=== PATIENT | female | born 1930 | race Caucasian/White ===

== ENCOUNTER → 2016-05-29 | Outpatient (CLI) | payer MEDICARE, OTHER ==
--- NOTE | 2016-05-29 09:18 | US ---
EXAMINATION TYPE: US abdomen complete DATE OF EXAM: 05/29/2016 8:23 AM COMPARISON: NONE CLINICAL HISTORY: ABD Pain R10.84. EXAM MEASUREMENTS: Liver Length: 14.7 cm Gallbladder Wall: Surgically absent cm CBD: 0.2 cm Spleen: 10.5 cm Right Kidney: 11.0 x 5.6 x 4.6 cm Left Kidney: 11.1 x 4. 4 x 4.7 cm TECHNOLOGIST IMPRESSION: morbidly obese patientl Pancreas: no masses seen, tail partially obscured by bowel gas, prominent for patients age Liver: heterogeneous and difficult to penetrate, increased attenuation Gallbladder: Surgically absent Evidence for sonographic Massey's sign: no CBD: wnl Spleen: possible cyst medial vs heterogeneous area, difficult to visualized due to body habitus Right Kidney: 3 cysts seen, largest 2 measuring 5.0 x 5.2 x 5.0cm and 2.6 x 2.6 x 2.6cm Left Kidney: 1.9 x 1.8 x 1.8cm Upper IVC: wnl Abd Aorta: portions visualized wnl, bifurcation not seen due to overlying bowel IMPRESSION: 1. Bilateral renal cysts. 2. Possible cyst spleen.
--- NOTE | 2016-05-29 10:05 | US ---
EXAMINATION TYPE: US pelvic complete DATE OF EXAM: 05/29/2016 9:19 AM COMPARISON: NONE CLINICAL HISTORY: ABD Pain R10.84, Pelvic Pain R10.2. TECHNIQUE: Transabdominal (TA) Date of LMP: post menapausal patient EXAM MEASUREMENTS: Uterus: 10.2 x 2.7 x 4.5 cm Endometrial Stripe: 0.5 cm Right Ovary: not visualized cm Left Ovary: not visualized cm TECHNOLOGIST IMPRESSION: morbidly obese patient 1. Uterus: Anteverted, heavily calcified 2. Endometrium: wnl 3. Right Ovary: not seen due to obesity and overlying bowel gas, atrophy 4. Left Ovary: not seen due to obesity and overlying bowel gas, atrophy 5. Bilateral Adnexa: wnl 6. Posterior cul-de-sac: wnl IMPRESSION: 1. Limited examination. 2. No ultrasound abnormalities are identified
== END | disposition home or self-care (01) ==
LOC: RADUSWWP 07:42
PROVIDERS: ATTEND Internal Medicine
DX: N28.1 Cyst of kidney, acquired (principal); R10.84 Generalized abdominal pain; R10.2 Pelvic and perineal pain
CPT/HCPCS: 76700; 76856

== ENCOUNTER → 2016-05-30 | Outpatient (CLI) | payer MEDICARE, OTHER ==
--- NOTE | 2016-05-31 09:23 | ECHOF ---
Referral Reason:R06.2 sob R601 generalized edema MEASUREMENTS -------- HEIGHT: 172.7 cm WEIGHT: 98.0 kg BP: 115/75 RVIDd: 2.5 cm (< 3.3) IVSd: 1.2 cm (0.6 - 1.1) LVIDd: 3.9 cm (3.9 - 5.3) LVPWd: 1.1 cm (0.6 - 1.1) IVSs: 1.7 cm LVIDs: 2.6 cm LVPWs: 1.6 cm LA Diam: 3.1 cm (2.7 - 3.8) LAESV Index (A-L): 27.80 ml/m Ao Diam: 3.3 cm (2.0 - 3.7) AV Cusp: 2.2 cm (1.5 - 2.6) LA Diam: 2.9 cm (2.7 - 3.8) MV EXCURSION: 14.577 mm (> 18.000) MV EF SLOPE: 69 mm/s (70 - 150) EPSS: 0.6 cm MV E Ernie: 0.97 m/s MV DecT: 220 ms MV A Ernie: 0.76 m/s MV E/A Ratio: 1.27 AR PHT: 899 ms RAP: 5.00 mmHg RVSP: 21.07 mmHg FINDINGS -------- Sinus rhythm. This was a technically good study. The left ventricular size is normal. There is borderline concentric left ventricular hypertrophy. Overall left ventricular systolic function is normal with, an EF between 60 - 65 %. The right ventricle is normal in size and function. The left atrium is normal in size. Normal LA size by volume 22+/-6 ml/m2. The right atrium is normal in size. There is mild aortic valve sclerosis. There is mild aortic regurgitation. The mitral valve leaflets are mildly thickened. Mild mitral annular calcification present. There is trace to mild mitral regurgitation. Mild tricuspid regurgitation present. Right ventricular systolic pressure is normal at < 35 mmHg. The pulmonic valve was not well visualized. The aortic root size is normal. Normal inferior vena cava with normal inspiratory collapse consistent with estimated right atrial pressure of 5 mmHg. There is no pericardial effusion. CONCLUSIONS -------- 1. Sinus rhythm. 2. There is mild aortic regurgitation. 3. The mitral valve leaflets are mildly thickened. 4. Mild mitral annular calcification present. 5. There is trace to mild mitral regurgitation. 6. Mild tricuspid regurgitation present. 7. Right ventricular systolic pressure is normal at < 35 mmHg. 8. The pulmonic valve was not well visualized. 9. The aortic root size is normal. 10. Normal inferior vena cava with normal inspiratory collapse consistent with estimated right atrial pressure of 5 mmHg. 11. There is no pericardial effusion. 12. This was a technically good study. 13. The left ventricular size is normal. 14. There is borderline concentric left ventricular hypertrophy. 15. Overall left ventricular systolic function is normal with, an EF between 60 - 65 %. 16. The right ventricle is normal in size and function. 17. Normal LA size by volume 22+/-6 ml/m2. 18. The right atrium is normal in size. 19. There is mild aortic valve sclerosis. INSTRUMENTATION AND CONTROL TECHNICIAN: Yumiko Bender RDCS
== END | disposition home or self-care (01) ==
LOC: RADECHMAIN 13:01
PROVIDERS: ATTEND Internal Medicine
DX: I08.3 Combined rheumatic disorders of mitral, aortic and tricuspid valves (principal); I70.0 Atherosclerosis of aorta
CPT/HCPCS: 93306

== ENCOUNTER → 2016-06-25 | Outpatient (CLI) | payer MEDICARE, OTHER ==
[2016-06-25 15:14] LABS: Blood Urea Nitrogen 15 mg/dL (7-17); Non-African American GFR(MDRD) >60 (>60 ml/min/1.73 sqM)
--- NOTE | 2016-06-25 16:55 | CT ---
EXAMINATION TYPE: CT abdomen pelvis w con DATE OF EXAM: 06/25/2016 4:45 PM COMPARISON: NONE INDICATION: Generalized abdominal pain and bloating x 3 months. DLP: 1496.30 mGycm, Automated exposure control for dose reduction was used. CONTRAST: 100 mL of Omnipaque 300. Study performed with Oral Contrast TECHNIQUE: Axial images were obtained from above the diaphragm to the pubic rami in the axial plane a t 5 mm thick sections. Reconstructed images are reviewed on the computer in the coronal plane. FINDINGS: Limited CT sections are obtained the lung bases. Minimal compressive atelectasis is within the depen dent right lung base.. CT ABDOMEN: Liver: Normal Spleen: Normal Pancreas: Normal Adrenal glands: The adrenal glands are normal. Gallbladder: Surgically absent Kidneys: No masses are evident. No hydronephrosis is present. There is a 2.0 cm cyst on the posteri or inferior left kidney. This measures 18 Hounsfield units. At the inferior pole of the right kidney is a 5.3 cm cyst measuring 6 Hounsfield units. There is an additional cyst on the posterior inferior kidney measuring 2.9 cm 14 Hounsfield units. A peripelvic cyst measuring 2.7 cm is in the mid pole le ft kidney. Delayed images were obtained through the kidneys, some additional tiny cortical renal cys ts are identified.. Aorta: Vascular calcification is within the aorta. Inferior vena cava: Normal. CT PELVIS: Loops of bowel within the abdomen and pelvis are normal. There are loops of bowel which are incom pletely distended or lack oral contrast limiting their evaluation. Bowel loops have normal caliber. Appendix: Not visualized Urinary bladder: Normal. Genitourinary structures: Uterus and adnexal regions are normal. No free fluid is within the pelvis. Osseous structures: No suspicious lytic or sclerotic lesions. Facet degenerative changes are within t he lumbar spine. IMPRESSIONS: 1. Bilateral renal cysts.
== END ==
LOC: RADCTMAIN 14:29
PROVIDERS: ATTEND Internal Medicine
DX: N28.1 Cyst of kidney, acquired (principal); R10.84 Generalized abdominal pain
CPT/HCPCS: 82565; 84520; 74177; 36415; Q9967

== ENCOUNTER 2016-08-02 19:08 | Emergency (ER) | payer MEDICARE, OTHER ==
[2016-08-02] MEDS ORDERED: MAGNESIUM CITRATE 296 ML BOTTLE PO ONE (19:31)
--- NOTE | 2016-08-02 19:34 | ED ---
General Adult HPI - General Chief complaint: Abdominal Pain Stated complaint: Poss Bowel Blockage Time Seen by Provider: 08/02/16 19:20 Source: patient, family, RN notes reviewed Mode of arrival: ambulatory Limitations: no limitations - History of Present Illness Initial comments: 85-year-old female presenting for constipation. Patient states that she has had a history of chronic constipation. She is using [id number] stool softeners which worked well for her for many months. She states she was put on calcium supplement about 2 weeks ago and the past week she's been unable to have a bowel movement. She has tried some manual disimpaction and continued [id number] stool softeners without improvement. She states she feels bloated. She denies any significant abdominal pain. She denies any nausea or vomiting. She denies any states abdominal surgical history or history of SBO. She denies any chest pain or shortness of breath. She denies fevers or chills. - Related Data Home Medications Medication Instructions Recorded Confirmed Levothyroxine Sodium [Synthroid] 100 mcg PO DAILY 09/20/13 08/02/16 Lisinopril-Hctz 10-12.5 mg 1 tab PO DAILY 09/20/13 08/02/16 [Zestoretic 10-12.5] Simvastatin [Zocor] 20 mg PO HS 09/20/13 08/02/16 sitaGLIPtin [Januvia] 100 mg PO DAILY 09/20/13 08/02/16 Pyridoxine [Vitamin B-6] 100 mg PO DAILY 01/18/16 08/02/16 Vit A/Vit C/Vit E/Zinc/Copper 1 cap PO DAILY 01/18/16 08/02/16 [ICAPS SOFTGEL] Ciprofloxacin HCl [Cipro] 500 mg PO BID 08/02/16 08/02/16 Cyanocobalamin (Vitamin B-12) 1,000 mcg PO DAILY 08/02/16 08/02/16 [Vitamin B-12] L.acidoph,Paracasei, B.lactis 1 cap PO DAILY 08/02/16 08/02/16 [Probiotic] Mupirocin 2% Oint [Bactroban 2% 1 applic TOPICAL BID 08/02/16 08/02/16 Oint] Allergies Allergy/AdvReac Type Severity Reaction Status Date / Time Penicillins Allergy Unknown Verified 08/02/16 20:00 Childhood Sulfa (Sulfonamide AdvReac Nausea/Vomiting/Loss Verified 08/02/16 20:00 Antibiotics) of Appetite Review of Systems ROS Statement: Those systems with pertinent positive or pertinent negative responses have been documented in the HPI. ROS Other: All systems not noted in ROS Statement are negative. Past Medical History Past Medical History: Diabetes Mellitus, Hyperlipidemia, Hypertension, Thyroid Disorder History of Any Multi-Drug Resistant Organisms: None Reported Past Surgical History: Cholecystectomy Additional Past Surgical History / Comment(s): tongue repair Past Anesthesia/Blood Transfusion Reactions: No Reported Reaction Past Psychological History: No Psychological Hx Reported Smoking Status: Never smoker Past Alcohol Use History: None Reported Past Drug Use History: None Reported General Exam - General Exam Comments Initial Comments: General: Awake and Alert. No acute distress. Does not appear acutely ill. Obese. Eyes: LELO, EOM intact. No nystagmus. No scleral icterus. HENT: Atraumatic, normocephalic. Mucous membranes moist. Trachea midline. Neck: The neck is supple, there is no tenderness or JVD. Cardiovascular: Regular rate and rhythm. No murmur, rub, or gallop is appreciated. Distal pulses intact. Respiratory: Lungs are clear to auscultation bilaterally. No wheezes, rales, rhonchi. No respiratory distress. Gastrointestinal: Soft, Nontender. No rebound or guarding. Mild distention. No masses or organomegaly noted. No CVA tenderness. Musculoskeletal: No tenderness. Normal ROM. No gross deformity. No strength deficits. Neurological: A&Ox3. CN II-XII grossly intact, There are no obvious motor or sensory deficits. Coordination appears grossly intact. Speech is normal. Skin: Skin is warm and dry and no rashes or lesions are noted. Psychiatric: Cooperative, appropriate mood & affect, normal judgment. Limitations: no limitations Course Vital Signs 08/02/16 08/02/16 19:10 20:26 Temperature 98 F 97.4 F L Pulse Rate 65 73 Respiratory 16 18 Rate Blood Pressure 157/60 161/75 O2 Sat by Pulse 94 L 96 Oximetry Medical Decision Making - Medical Decision Making 85-year-old female presenting for constipation. No significant abdominal pain or tenderness on exam concerning for acute peritonitis. X-ray was obtained without evidence of acute obstruction. She was given an enema with two good bowel movement afterwards. She was given mag citrate to go home with for continued constipation management. Discussed continuing [id number]-[id number] stool softeners twice daily until bowel movements return to normal. Discussed stopping her calcium supplement and discussing this with her PCP. Discussed close follow-up with PCP. Discussed concerning signs symptoms for immediate return to the ED. Patient and daughter are agreeable with plan and discharge home. - Radiology Data Radiology results: report reviewed, image reviewed Disposition Clinical Impression: Constipation Disposition: HOME SELF-CARE Condition: Stable Instructions: Constipation (ED) Additional Instructions: Please continue your stool softeners twice a day until normal bowel movements return, then daily after that. Please stop the calcium supplement for now and discuss with your primary doctor. Referrals: Tabitha Solorio MD [Primary Care Provider] - 1-2 days Time of Disposition: 20:43
--- NOTE | 2016-08-02 19:51 | XR ---
EXAMINATION TYPE: XR KUB DATE OF EXAM: 08/02/2016 7:40 PM COMPARISON: 01/18/2016 HISTORY: Constipation TECHNIQUE: 2 views FINDINGS: There is no sign of intestinal obstruction or pneumoperitoneum. There are clips from cholec ystectomy. There is no evidence of a mass. Eakle pattern is fairly normal. There is a mild lumbar lev oscoliosis. Lung bases are clear of consolidation. IMPRESSION: Nonacute abdomen. There is less fecal material compared to old exam.
[2016-08-02 20:27] VITALS: BP 161/75; PULSE 73; RESP 18; TEMP 97.4
== END 2016-08-02 20:56 | disposition home or self-care (01) ==
LOC: EC 19:08
DX: K59.00 Constipation, unspecified (principal); E11.9 Type 2 diabetes mellitus without complications; E78.5 Hyperlipidemia, unspecified; I10 Essential (primary) hypertension; E07.9 Disorder of thyroid, unspecified; Z79.899 Other long term (current) drug therapy; Z88.0 Allergy status to penicillin; Z88.2 Allergy status to sulfonamides; Z90.49 Acquired absence of other specified parts of digestive tract
CPT/HCPCS: 74000; 99284

== ENCOUNTER → 2017-06-11 | Outpatient (CLI) | payer MEDICARE, OTHER ==
--- NOTE | 2017-06-11 13:58 | XR ---
Lumbosacral spine HISTORY: Sciatica, right hip pain, low back pain 5 views of the lumbosacral spine. Bone mineralization is reduced which may limit sensitivity. Superior endplate compression deformity possibly at L2, L3. There is multilevel spondylosis. Loss of disc height present at the intervertebral levels, no evident spondylolysis. Sclerosis present in the posterior elements of the lumbar spine compatible with facet arthropathy. Scoliosis is again noted. Surgical clips present in the right upper quadrant. IMPRESSION: Marked osteoporosis. Degenerative disc disease and facet arthropathy. There may be superi or endplate compression fractures, bone scan or MRI may be of benefit. Scoliosis.
--- NOTE | 2017-06-11 14:01 | XR ---
EXAMINATION TYPE: XR Hip Complete RT DATE OF EXAM: 06/11/2017 CLINICAL HISTORY: On off right hip pain radiating down right leg. TECHNIQUE: AP and frogleg views of the right hip are obtained. COMPARISON: CT abdomen and pelvis June 25, 2016 FINDINGS: Osseous structures are demineralized which is noted to lower radiographic sensitivity Ther e is no acute fracture/dislocation evident in the right hip. There is moderate axial joint space loss and acetabular spurring. The overlying soft tissue appears unremarkable. IMPRESSION: There is demineralization with moderate degenerative changes in the right hip redemonstr ated. No significant change from prior CT.
== END | disposition home or self-care (01) ==
LOC: RADXRYALE 13:02
PROVIDERS: ATTEND Internal Medicine
DX: M51.17 Intervertebral disc disorders with radiculopathy, lumbosacral region (principal); M46.87 Other specified inflammatory spondylopathies, lumbosacral region; M41.87 Other forms of scoliosis, lumbosacral region; M81.0 Age-related osteoporosis without current pathological fracture; M25.551 Pain in right hip
CPT/HCPCS: 72110; 73502

== ENCOUNTER 2019-04-13 05:56 | Inpatient (IN) | payer MEDICARE, OTHER ==
[2019-04-13] MEDS ORDERED: DILTIAZEM DRIP BOLUS FROM BAG 1 MG SOLN IV ONE (06:12)
--- NOTE | 2019-04-13 06:12 | ED ---
Arrhythmia/Palpitations HPI - General Stated Complaint: Afib Time Seen by Provider: 04/13/19 06:01 Source: patient, EMS, RN notes reviewed Mode of arrival: EMS Limitations: no limitations - History of Present Illness Initial Comments: 88-year-old female presents emergency Department with chief complaint of palpitations, nausea over the last 3 days. She states she just has not felt well. She does admit that time that symptoms seemed improved. Nausea has resolved, she has no sensation of palpitations. Patient denies any history of A. fib or any cardiac arrhythmias. Patient does state that she takes medications for high blood pressure. Patient denies any episodes of chest pain denies any abdominal pain. Patient states she does not know all of her medications that her daughter takes care of her medications to sign. She does not that she has ALLERGIES to penicillin products. Patient denies any URI symptoms fever, chills. - Related Data Home Medications Medication Instructions Recorded Confirmed Levothyroxine Sodium [Synthroid] 100 mcg PO DAILY 09/20/13 08/02/16 Lisinopril-Hctz 10-12.5 mg 1 tab PO DAILY 09/20/13 08/02/16 [Zestoretic 10-12.5] Simvastatin [Zocor] 20 mg PO HS 09/20/13 08/02/16 sitaGLIPtin [Januvia] 100 mg PO DAILY 09/20/13 08/02/16 Pyridoxine [Vitamin B-6] 100 mg PO DAILY 01/18/16 08/02/16 Vit A/Vit C/Vit E/Zinc/Copper 1 cap PO DAILY 01/18/16 08/02/16 [ICAPS SOFTGEL] Ciprofloxacin HCl [Cipro] 500 mg PO BID 08/02/16 08/02/16 Cyanocobalamin (Vitamin B-12) 1,000 mcg PO DAILY 08/02/16 08/02/16 [Vitamin B-12] L.acidoph,Paracasei, B.lactis 1 cap PO DAILY 08/02/16 08/02/16 [Probiotic] Mupirocin 2% Oint [Bactroban 2% 1 applic TOPICAL BID 08/02/16 08/02/16 Oint] Allergies Allergy/AdvReac Type Severity Reaction Status Date / Time Penicillins Allergy Unknown Verified 08/02/16 20:00 Childhood Sulfa (Sulfonamide AdvReac Nausea/Vomiting/Loss Verified 08/02/16 20:00 Antibiotics) of Appetite Review of Systems ROS Statement: Those systems with pertinent positive or pertinent negative responses have been documented in the HPI. ROS Other: All systems not noted in ROS Statement are negative. Past Medical History Past Medical History: Diabetes Mellitus, Hyperlipidemia, Hypertension, Thyroid Disorder History of Any Multi-Drug Resistant Organisms: None Reported Past Surgical History: Cholecystectomy Additional Past Surgical History / Comment(s): tongue repair Past Anesthesia/Blood Transfusion Reactions: No Reported Reaction Past Psychological History: No Psychological Hx Reported Smoking Status: Never smoker Past Alcohol Use History: None Reported Past Drug Use History: None Reported General Exam Limitations: no limitations General appearance: alert, in no apparent distress Head exam: Present: atraumatic, normocephalic, normal inspection Eye exam: Present: normal appearance, PERRL, EOMI. Absent: scleral icterus, conjunctival injection, periorbital swelling ENT exam: Present: normal exam, normal oropharynx, mucous membranes moist Neck exam: Present: normal inspection, full ROM. Absent: tenderness, meningismus, lymphadenopathy Respiratory exam: Present: normal lung sounds bilaterally. Absent: respiratory distress, wheezes, rales, rhonchi, stridor Cardiovascular Exam: Present: tachycardia, irregular rhythm, normal heart sounds. Absent: regular rate, normal rhythm, systolic murmur, diastolic murmur, rubs, gallop, clicks GI/Abdominal exam: Present: soft, normal bowel sounds. Absent: distended, tenderness, guarding, rebound, rigid Extremities exam: Present: pedal edema (mild right) Neurological exam: Present: alert, oriented X3, CN II-XII intact Skin exam: Present: warm, dry, intact, normal color. Absent: rash Course Vital Signs 04/13/19 04/13/19 05:58 06:42 Temperature 97.8 F Pulse Rate 140 H 120 H Respiratory 18 18 Rate Blood Pressure 148/96 106/69 O2 Sat by Pulse 95 98 Oximetry EKG Findings - EKG Comments: EKG Findings:: EKG performed at 09/27/2004 A. fib with RVR rate of 122 QRS 120 QT/QTC 332/473 Medical Decision Making - Medical Decision Making patient will be admitted for A. fib RVR started on Cardizem and heparin - Lab Data Result diagrams: 04/13/19 06:15 04/13/19 06:15 Lab Results 04/13/19 04/13/19 04/13/19 Range/Units 06:15 06:15 06:15 WBC 7.5 (3.8-10.6) k/uL RBC 4.68 (3.80-5.40) m/uL Hgb 14.5 (11.4-16.0) gm/dL Hct 43.5 (34.0-46.0) % MCV 92.9 (80.0-100.0) fL MCH 31.1 (25.0-35.0) pg MCHC 33.4 (31.0-37.0) g/dL RDW 12.4 (11.5-15.5) % Plt Count 142 L (150-450) k/uL Neutrophils % 63 % Lymphocytes % 25 % Monocytes % 7 % Eosinophils % 2 % Basophils % 1 % Neutrophils # 4.7 (1.3-7.7) k/uL Lymphocytes # 1.8 (1.0-4.8) k/uL Monocytes # 0.5 (0-1.0) k/uL Eosinophils # 0.2 (0-0.7) k/uL Basophils # 0.1 (0-0.2) k/uL PT 10.5 (9.0-12.0) sec INR 1.0 (<1.2) APTT 25.9 (22.0-30.0) sec Sodium 142 (137-145) mmol/L Potassium 3.8 (3.5-5.1) mmol/L Chloride 108 H (98-107) mmol/L Carbon Dioxide 28 (22-30) mmol/L Anion Gap 6 mmol/L BUN 16 (7-17) mg/dL Creatinine 0.84 (0.52-1.04) mg/dL Est GFR (CKD-EPI)AfAm 72 (>60 ml/min/1.73 sqM) Est GFR (CKD-EPI)NonAf 63 (>60 ml/min/1.73 sqM) Glucose 121 H (74-99) mg/dL Calcium 9.5 (8.4-10.2) mg/dL Magnesium 1.8 (1.6-2.3) mg/dL Total Bilirubin 0.5 (0.2-1.3) mg/dL AST 44 H (14-36) U/L ALT 25 (4-34) U/L Alkaline Phosphatase 113 (38-126) U/L Troponin I (0.000-0.034) ng/mL Total Protein 6.9 (6.3-8.2) g/dL Albumin 3.7 (3.5-5.0) g/dL 04/13/19 Range/Units 06:15 WBC (3.8-10.6) k/uL RBC (3.80-5.40) m/uL Hgb (11.4-16.0) gm/dL Hct (34.0-46.0) % MCV (80.0-100.0) fL MCH (25.0-35.0) pg MCHC (31.0-37.0) g/dL RDW (11.5-15.5) % Plt Count (150-450) k/uL Neutrophils % % Lymphocytes % % Monocytes % % Eosinophils % % Basophils % % Neutrophils # (1.3-7.7) k/uL Lymphocytes # (1.0-4.8) k/uL Monocytes # (0-1.0) k/uL Eosinophils # (0-0.7) k/uL Basophils # (0-0.2) k/uL PT (9.0-12.0) sec INR (<1.2) APTT (22.0-30.0) sec Sodium (137-145) mmol/L Potassium (3.5-5.1) mmol/L Chloride (98-107) mmol/L Carbon Dioxide (22-30) mmol/L Anion Gap mmol/L BUN (7-17) mg/dL Creatinine (0.52-1.04) mg/dL Est GFR (CKD-EPI)AfAm (>60 ml/min/1.73 sqM) Est GFR (CKD-EPI)NonAf (>60 ml/min/1.73 sqM) Glucose (74-99) mg/dL Calcium (8.4-10.2) mg/dL Magnesium (1.6-2.3) mg/dL Total Bilirubin (0.2-1.3) mg/dL AST (14-36) U/L ALT (4-34) U/L Alkaline Phosphatase (38-126) U/L Troponin I 0.012 (0.000-0.034) ng/mL Total Protein (6.3-8.2) g/dL Albumin (3.5-5.0) g/dL Critical Care Time Critical Care Time: Yes Total Critical Care Time: 35 Critical Care Time: total 35 minutes of critical care time were used initially evaluated patient, discussed. Patient, EMS and put orders in include a CBC, CMP, troponin, EKG, chest x-ray, urinalysis. Patient is found to be in A. fib with RVR, Cardizem were ordered with initial bolus of 10, started on a drip of 5 per hour. Patient remains to be stable, still tachycardic. Patient was started on heparin at this time for new-onset A. fib will be admitted case discussed with admitting physician consult to cardiology. Disposition Clinical Impression: Atrial fibrillation with RVR, New onset a-fib Disposition: ADMITTED IP TO THIS HOSP Condition: Fair Referrals: Tabitha Solorio MD [Primary Care Provider] - 1-2 days
[2019-04-13] MEDS ORDERED: HEPARIN SODIUM,PORCINE 5,000 UNIT/ML 1 ML VIAL IV ONE (06:14)
[2019-04-13] MEDS ORDERED: HEPARIN SODIUM,PORCINE 5,000 UNIT/ML 1 ML VIAL IV PRN (06:14)
[2019-04-13] MEDS ORDERED: HEPARIN SOD,PORK IN 0.45% NACL 25,000 UNIT in 0.45% NACL 1 250ML.BAG IV SCH (06:15)
[2019-04-13] MEDS ORDERED: DILTIAZEM 125 MG in SODIUM CHLORIDE 0.9% 100 ML IV SCH (06:30)
[2019-04-13 06:34] LABS: Basophils # (A) 0.1 k/uL (0-0.2); Basophils % (A) 1 %; Eosinophils # (A) 0.2 k/uL (0-0.7); Eosinophils % (A) 2 %; HCT 43.5 % (34.0-46.0); HGB 14.5 gm/dL (11.4-16.0); Lymphocytes # (A) 1.8 k/uL (1.0-4.8); Lymphocytes % (A) 25 %; MCH 31.1 pg (25.0-35.0); MCHC 33.4 g/dL (31.0-37.0); MCV 92.9 fL (80.0-100.0); Mean Platelet Volume 7.8; Monocytes # (A) 0.5 k/uL (0-1.0); Monocytes % (A) 7 %; Neutrophils # (A) 4.7 k/uL (1.3-7.7); Neutrophils % (A) 63 %; Platelet Count 142 k/uL (150-450); RBC 4.68 m/uL (3.80-5.40); RDW 12.4 % (11.5-15.5); WBC 7.5 k/uL (3.8-10.6)
[2019-04-13 06:42] LABS: Partial Thromboplastin Time 25.9 sec (22.0-30.0); Prothrombin Time 10.5 sec (9.0-12.0)
[2019-04-13 06:45] LABS: Albumin 3.7 g/dL (3.5-5.0); Calcium 9.5 mg/dL (8.4-10.2); Magnesium 1.8 mg/dL (1.6-2.3); Potassium 3.8 mmol/L (3.5-5.1); Total Bilirubin 0.5 mg/dL (0.2-1.3); Total Protein 6.9 g/dL (6.3-8.2)
--- NOTE | 2019-04-13 07:07 | XR ---
EXAM: XR Chest, 2 Views CLINICAL HISTORY: Dysrhythmia. TECHNIQUE: Frontal and lateral views of the chest. COMPARISON: 09/20/2013. FINDINGS: Lungs: The lungs are well aerated. Minimal scarring at the left lung base. Pleural space: No pneumothorax. No pleural effusion. Heart: There is mild cardiomegaly. Mediastinum: Unremarkable. Bones/joints: Mild to moderate degenerative disc disease of the thoracic spine and dextroscoliosis. Osteopenia. IMPRESSION: Cardiomegaly. No pleural effusions. No pneumothorax.
[2019-04-13] MEDS ORDERED: NITROGLYCERIN SL TABS 0.4 MG TAB SUBLINGUAL PRN (07:22)
[2019-04-13 10:17] LABS: Appearance,Urine Clear (Clear); Bilirubin,Urine Negative (Negative); Blood,Urine Negative (Negative); Color,Urine Light Yellow; Glucose,Urine (UA) Negative (Negative); Ketones,Urine Negative (Negative); Leukocyte Esterase,Urine Negative (Negative); Nitrite,Urine Negative (Negative); Protein,Urine Negative (Negative); Specific Gravity,Urine 1.006 (1.001-1.035); Urobilinogen,Urine <2.0 mg/dL (<2.0)
--- NOTE | 2019-04-13 13:08 | P.CRDCN ---
History of Present Illness Consult date: 04/13/19 Requesting physician: Tyra Lange Consult reason: atrial fibrillation Chief complaint: mid epigastric discomfort History of present illness: this is a pleasant 88-year-old female with documented history of hypertension, hyperlipidemia, diabetes, hypothyroidism, who had been having sy mptoms of what she felt was a heartburn sensation, she states it would be worse in the morning and as the day went on it with progressively improved. The following day upon wakening she had the same symptoms, much more severe, and not seeming to dissipate as the day went on. She denies any dizziness or lightheadedness, no chest discomfort, no palpitations or heart racing.her EKG on presentation to the emergency room showed atrial fibrillation with a rapid ventricular response. Chest x-ray showed cardiomegaly with no pleural effusions. Patient was initiated on IV Cardizem after being given a bolus of 10 mg, in the emergency room, she has since converted to normal sinus rhythm. Subsequent EKG shows a sinus bradycardia with a first-degree AV block, LVH strain pattern. Blood pressure on arrival 148/90 with a heart rate of 140, 95% on room air.blood pressure this morning 100/50, heart rate in the 50s, 97% on room air. White blood cell count 7.5, hemoglobin 14.5, platelet count 142. Sod ium 142, potassium 3.8, BUN 16, creatinine 0.8, magnesium 1.8. Initial troponin is negative. Past Medical History Past Medical History: Diabetes Mellitus, Hyperlipidemia, Hypertension, Osteoarthritis (OA), Thyroid Disorder Additional Past Medical History / Comment(s): NIDDM type II, neuropathy bilateral feet, bilateral leg edema with R side worse, arthritis R hip, hypothyroid, diverticular disease, constipation History of Any Multi-Drug Resistant Organisms: None Reported Past Surgical History: Cholecystectomy Additional Past Surgical History / Comment(s): Colonoscopies, bilateral cataract removals/lens implants, tongue repair Past Anesthesia/Blood Transfusion Reactions: No Reported Reaction Smoking Status: Never smoker - Past Family History Father Family Medical History: Myocardial Infarction ([place]) Additional Family Medical History / Comment(s): Father of a [place] at the age of 39yrs. Mother Family Medical History: Cancer Additional Family Medical History / Comment(s): Mother lived to be 92yrs old. Medications and Allergies Home Medications Medication Instructions Recorded Confirmed Type Lisinopril-Hctz 10-12.5 mg 1 tab PO DAILY 09/20/13 04/13/19 History [Zestoretic 10-12.5] Simvastatin [Zocor] 20 mg PO HS 09/20/13 04/13/19 History sitaGLIPtin [Januvia] 100 mg PO DAILY 09/20/13 04/13/19 History Pyridoxine [Vitamin B-6] 100 mg PO DAILY 01/18/16 04/13/19 History Vit A/Vit C/Vit E/Zinc/Copper 1 cap PO DAILY 01/18/16 04/13/19 History [ICAPS SOFTGEL] Cyanocobalamin (Vitamin B-12) 1,000 mcg PO DAILY 08/02/16 04/13/19 History [Vitamin B-12] L.acidoph,Paracasei, B.lactis 1 cap PO DAILY 08/02/16 04/13/19 History [Probiotic] Cholecalciferol [Vitamin D3 (25 1,000 unit PO DAILY 04/13/19 04/13/19 History Mcg = 1000 Iu)] Docusate 250mg Caps 250 mg PO DAILY 04/13/19 04/13/19 History Levothyroxine Sodium [Synthroid] 88 mcg PO DAILY 04/13/19 04/13/19 History Allergies Allergy/AdvReac Type Severity Reaction Status Date / Time Penicillins Allergy Unknown Verified 04/13/19 07:37 Childhood Sulfa (Sulfonamide AdvReac Nausea/Vomiting/Loss Verified 04/13/19 07:37 Antibiotics) of Appetite Physical Exam Vitals: Vital Signs Temp Pulse Pulse Resp BP BP Pulse Ox 04/13/19 12:00 58 L 20 99/58 97 04/13/19 10:44 97.5 F L 62 20 116/59 95 04/13/19 09:00 58 L 20 114/63 95 04/13/19 08:00 98 20 95 04/13/19 07:57 112 H 20 108/63 95 04/13/19 06:42 120 H 18 106/69 98 04/13/19 05:58 97.8 F 140 H 18 148/96 95 Intake and Output 04/12/19 04/13/19 04/13/19 22:59 06:59 14:59 Other: # Voids 1 Weight 95.254 kg 95.254 kg PHYSICAL EXAMINATION: GENERAL:78-year-old female in no acute distress at the time of my examination HEENT: Head is atraumatic, normocephalic. Pupils equal, round. Sclera anicteric. Conjunctiva are clear. Mucous membranes of the mouth are moist. Neck is supple. There is no elevated jugular venous pressure.no carotid bruit is heard. HEART EXAMINATION: [Heart S1, S2 normal. No murmur or gallop heard.] CHEST EXAMINATION:[ Lungs are clear to auscultation and precussion. No chest wall tenderness is noted on palpation or with deep breathing.] ABDOMEN: [ Soft, nontender. Bowel sounds are heard. No organomegaly noted]. EXTREMITIES:[ 2+ peripheral pulses with 1+ lower extremity edema to the right leg, right leg is significantly larger than the left, Homans negative]. NEUROLOGIC [patient is awake, alert and oriented X3.] . Results 04/13/19 06:15 04/13/19 06:15 Cardiac Enzymes 04/13/19 04/13/19 Range/Units 06:15 06:15 AST 44 H (14-36) U/L Troponin I 0.012 (0.000-0.034) ng/mL Coagulation 04/13/19 Range/Units 06:15 PT 10.5 (9.0-12.0) sec APTT 25.9 (22.0-30.0) sec CBC 04/13/19 Range/Units 06:15 WBC 7.5 (3.8-10.6) k/uL RBC 4.68 (3.80-5.40) m/uL Hgb 14.5 (11.4-16.0) gm/dL Hct 43.5 (34.0-46.0) % Plt Count 142 L (150-450) k/uL Comprehensive Metabolic Panel 04/13/19 Range/Units 06:15 Sodium 142 (137-145) mmol/L Potassium 3.8 (3.5-5.1) mmol/L Chloride 108 H (98-107) mmol/L Carbon Dioxide 28 (22-30) mmol/L BUN 16 (7-17) mg/dL Creatinine 0.84 (0.52-1.04) mg/dL Glucose 121 H (74-99) mg/dL Calcium 9.5 (8.4-10.2) mg/dL AST 44 H (14-36) U/L ALT 25 (4-34) U/L Alkaline Phosphatase 113 (38-126) U/L Total Protein 6.9 (6.3-8.2) g/dL Albumin 3.7 (3.5-5.0) g/dL Current Medications Generic Name Dose Route Start Last Admin Trade Name Freq PRN Reason Stop Dose Admin Heparin Sodium (Porcine) 0 unit 04/13/19 06:14 Heparin IV PER PROTOCOL PRN Low PTT Protocol Diltiazem HCl 125 mg/ Sodium 125 mls @ 5 mls/hr 04/13/19 06:30 04/13/19 06:39 Chloride IV 5 mg/hr .Q24H CHERELLE 5 mls/hr Administration 5 MG/HR Heparin Sodium/Sodium Chloride 250 mls @ 10.002 mls/hr 04/13/19 06:15 04/13/19 06:39 25,000 unit/ Sodium Chloride IV 10.5 units/kg/hr .Q24H CHERELLE 10.002 mls/hr Administration Protocol 10.5 UNITS/KG/HR Nitroglycerin 0.4 mg 04/13/19 07:22 Nitrostat SUBLINGUAL Q5M PRN Chest Pain Intake and Output 04/12/19 04/13/19 04/13/19 22:59 06:59 14:59 Other: # Voids 1 Weight 95.254 kg 95.254 kg Patient Weight 04/14/19 06:59 Weight 95.254 kg 04/13/19 06:15 04/13/19 06:15 EKG Interpretations (text) initial EKG showed atrial fibrillation with a rapid ventricular response, subsequent EKG shows normal sinus rhythm with first-degree AV block Assessment and Plan Plan: assessment and plan #1 atrial fibrillation with rapid ventricular response, new onset for the patient, currently in normal sinus rhythm, paroxysmal #2 diabetes #3 hypertension #4 hyperlipidemia #5 hypothyroidism Plan We will obtain an echocardiogram with Doppler study, as well as a TSH level. Discontinue IV Cardizem drip. Patient and family have been educated regarding the importance of anticoagulation for stroke prevention. We will start the patient on Eliquis and discontinue the IV heparin drip. Patient's right leg is considerably larger than the left, there is some swelling in that lower extremity, although the patient states that that is been there for several months, we will check a venous duplex study to rule out DVT.we will hold off on a beta pia at this time because patient is bradycardic with a long first- degree. Further recommendations to follow. DNP note has been reviewed, I agree with a documented findings and plan of care. Patient was seen and examined.
--- NOTE | 2019-04-13 14:05 | US ---
EXAMINATION TYPE: US venous doppler duplex LE RT DATE OF EXAM: 04/13/2019 1:44 PM COMPARISON: NONE CLINICAL HISTORY: r/o dvt. Right leg swelling x 2 years per patient; in hospital for chest discomfort per patient SIDE PERFORMED: Right TECHNIQUE: The lower extremity deep venous system is examined utilizing real time linear array sonog alcon with graded compression, doppler sonography and color-flow sonography. VESSELS IMAGED: Common Femoral Vein Deep Femoral Vein Greater Saphenous Vein * Femoral Vein Popliteal Vein Small Saphenous Vein * Proximal Calf Veins (* superficial vessels) Grayscale, color doppler, spectral doppler imaging performed of the deep veins of the right lower ext remity. There is normal flow, compressibility, vascular waveforms. Right Leg: Negative for DVT IMPRESSION: No sonographic evidence of deep venous thrombosis within the right lower extremity.
[2019-04-13] MEDS: LEVOTHYROXINE 88 MCG TAB PO SCH (14:37)
[2019-04-13] MEDS: APIXABAN 5 MG TAB PO SCH ×2 (14:37→20:35)
--- NOTE | 2019-04-13 19:03 | ECHOF ---
Referral Reason:afib MEASUREMENTS -------- HEIGHT: 172.7 cm WEIGHT: 95.3 kg BP: 99/58 IVSd: 1.5 cm (0.6 - 1.1) LVIDd: 3.3 cm (3.9 - 5.3) LVPWd: 1.7 cm (0.6 - 1.1) IVSs: 1.7 cm LVIDs: 2.3 cm LVPWs: 1.6 cm LAESV Index (A-L): 22.23 ml/m Ao Diam: 3.3 cm (2.0 - 3.7) AV Cusp: 1.7 cm (1.5 - 2.6) MV EXCURSION: 15.135 mm (> 18.000) MV EF SLOPE: 118 mm/s (70 - 150) EPSS: 0.3 cm MV E Ernie: 0.95 m/s MV DecT: 237 ms MV A Ernie: 0.72 m/s MV E/A Ratio: 1.32 AR PHT: 562 ms RAP: 5.00 mmHg RVSP: 27.54 mmHg FINDINGS -------- Sinus rhythm. This was a technically difficult study with suboptimal views. The left ventricular size is normal. There is moderate concentric left ventricular hypertrophy. O verall left ventricular systolic function is normal with, an EF between 55 - 60 %. The diastolic fi lling pattern is normal for the age of the patient 13.73. The RV was not well visualized. Normal LA size by volume 22+/-6 ml/m2. The right atrium was not well visualized. 5.0mg of Lumason was utilized for enhancement of images Interatrial and interventricular septum intact. The aortic valve was not well visualized. There is mild aortic regurgitation. There is no evidenc e of aortic stenosis. The mitral valve was not well visualized. No mitral regurgitation. Mild tricuspid regurgitation present. There is no evidence of pulmonary hypertension. The right v entricular systolic pressure, as measured by Doppler, is 27.54mmHg. Trace/mild (physiologic) pulmonic regurgitation. The aortic root size is normal. IVC Not well visulized. There is no pericardial effusion. CONCLUSIONS -------- 1. Sinus rhythm. 2. This was a technically difficult study with suboptimal views. 3. The left ventricular size is normal. 4. There is moderate concentric left ventricular hypertrophy. 5. Overall left ventricular systolic function is normal with, an EF between 55 - 60 %. 6. The diastolic filling pattern is normal for the age of the patient 13.73 7. The RV was not well visualized. 8. Normal LA size by volume 22+/-6 ml/m2. 9. The right atrium was not well visualized. 10. 5.0mg of Lumason was utilized for enhancement of images 11. Interatrial and interventricular septum intact. 12. The aortic valve was not well visualized. 13. There is mild aortic regurgitation. 14. There is no evidence of aortic stenosis. 15. The mitral valve was not well visualized. 16. No mitral regurgitation. 17. Mild tricuspid regurgitation present. 18. There is no evidence of pulmonary hypertension. 19. The right ventricular systolic pressure, as measured by Doppler, is 27.54mmHg. 20. Trace/mild (physiologic) pulmonic regurgitation. 21. The aortic root size is normal. 22. IVC Not well visulized. 23. There is no pericardial effusion. CSR RETAIL: Mohini Hill RDCS
[2019-04-13] MEDS: ATORVASTATIN 10 MG TAB PO SCH (20:35)
--- NOTE | 2019-04-13 23:58 | P.HPIM ---
History of Present Illness H&P Date: 04/13/19 Chief Complaint: epigastric discomfort patient is a 88-year-old female with diabetes type 2 [id number],diabetic peripheral neuropathy,hypertension, hyperlipidemiaand hypothyroidism came to ER with complaints of epigastric discomfort and nausea for the past 3 days. Patient's symptoms got worse this morning upon awakening. Patient presented to ER for evaluation. No history of coronary artery disease. No history of prior atrial fibrillation. Denied any complaints of chest painor shortness of breath. No fever no chills. No cough or sputum production. No recent illnesses. Patient recently notedincreased leg swelling right more than left. No complaints of pleuritic chest pain. Chest x-ray showed cardiomegaly with no pleural effusion.o pneumothorax. EKG showed in the emergency room, atrial fibrillationwith a rapid ventricular rate. Currently patient is saturating at 94% on room air. Patient was started on Cardizem drip and heparin drip. Currently patient is converted to sinus rhythm. Troponin 3 negat, WBC 7.5, hemoglobin 14.5, platelets 1 42,000, BUN 16 and creatinine 0.8 Review of Systems Constitutional: Patient denies any fever or chills . No generalized weakness or weight loss. Abdomen: Patient denied nausea vomiting and diarrhea and abdominal pain.epigastric discomfort. Cardiovascular: Patient denies any chest pain or short of breath no palpitations. Respiratory: patient denied any cough is from production. No shortness of breath Neurologic: Patient denied any numbness or tingling headache. Musculoskeletal: Patient denies any complaints of joint swelling or deformity. Skin: Negative Psychiatric: Negative Endocrine: No heat or cold intolerance. No recent weight gain. Genitourinary: No dysuria or hematuria. All other 14 point ROS negative except the above Past Medical History Past Medical History: Diabetes Mellitus, Hyperlipidemia, Hypertension, Osteoarthritis (OA), Thyroid Disorder Additional Past Medical History / Comment(s): NIDDM type II, neuropathy bilateral feet, bilateral leg edema with R side worse, arthritis R hip, hypothyroid, diverticular disease, constipation History of Any Multi-Drug Resistant Organisms: None Reported Past Surgical History: Cholecystectomy Additional Past Surgical History / Comment(s): Colonoscopies, bilateral cataract removals/lens implants, tongue repair Past Anesthesia/Blood Transfusion Reactions: No Reported Reaction Smoking Status: Never smoker - Past Family History Father Family Medical History: Myocardial Infarction ([place]) Additional Family Medical History / Comment(s): Father of a [place] at the age of 39yrs. Mother Family Medical History: Cancer Additional Family Medical History / Comment(s): Mother lived to be 92yrs old. Medications and Allergies Home Medications Medication Instructions Recorded Confirmed Type Lisinopril-Hctz 10-12.5 mg 1 tab PO DAILY 09/20/13 04/13/19 History [Zestoretic 10-12.5] Simvastatin [Zocor] 20 mg PO HS 09/20/13 04/13/19 History sitaGLIPtin [Januvia] 100 mg PO DAILY 09/20/13 04/13/19 History Pyridoxine [Vitamin B-6] 100 mg PO DAILY 01/18/16 04/13/19 History Vit A/Vit C/Vit E/Zinc/Copper 1 cap PO DAILY 01/18/16 04/13/19 History [ICAPS SOFTGEL] Cyanocobalamin (Vitamin B-12) 1,000 mcg PO DAILY 08/02/16 04/13/19 History [Vitamin B-12] L.acidoph,Paracasei, B.lactis 1 cap PO DAILY 08/02/16 04/13/19 History [Probiotic] Cholecalciferol [Vitamin D3 (25 1,000 unit PO DAILY 04/13/19 04/13/19 History Mcg = 1000 Iu)] Docusate 250mg Caps 250 mg PO DAILY 04/13/19 04/13/19 History Levothyroxine Sodium [Synthroid] 88 mcg PO DAILY 04/13/19 04/13/19 History Allergies Allergy/AdvReac Type Severity Reaction Status Date / Time Penicillins Allergy Unknown Verified 04/13/19 07:37 Childhood Sulfa (Sulfonamide AdvReac Nausea/Vomiting/Loss Verified 04/13/19 07:37 Antibiotics) of Appetite Physical Exam Vitals: Vital Signs Temp Pulse Pulse Resp BP BP Pulse Ox 04/13/19 10:44 97.5 F L 62 20 116/59 95 04/13/19 09:00 58 L 20 114/63 95 04/13/19 08:00 98 20 95 04/13/19 07:57 112 H 20 108/63 95 04/13/19 06:42 120 H 18 106/69 98 04/13/19 05:58 97.8 F 140 H 18 148/96 95 Intake and Output 04/12/19 04/13/19 04/13/19 22:59 06:59 14:59 Other: # Voids 1 Weight 95.254 kg 95.254 kg PHYSICAL EXAMINATION: Patient is lying in the bed comfortably, no acute distress, awake alert and oriented.. HEENT: Normocephalic. Neck is supple. Pupils reactive. Nostrils clear. Oral cavity is moist. Ears reveal no drainage. Neck reveals no JVD, carotid bruits, or thyromegaly. CHEST EXAMINATION: Trachea is central. Symmetrical expansion. Lung howard clear to auscultation and percussion. CARDIAC: Normal S1, S2 with no gallops. No murmurs ABDOMEN: Soft. Bowel sounds normal. No organomegaly. No abdominal bruits. Extremities: reveal no edema. No clubbing or cyanosis Neurologically awake, alert, oriented x3 with well-coordinated movements. No focal deficits noted Skin: No rash or skin lesions. Psychiatric: Coperative. Nonsuicidal Musculoskeletal: No joint swelling or deformity. Normal range of motion. Results CBC & Chem 7: 04/13/19 06:15 04/13/19 06:15 Labs: Abnormal Lab Results - Last 24 Hours (Table) 04/13/19 04/13/19 Range/Units 06:15 06:15 Plt Count 142 L (150-450) k/uL Chloride 108 H (98-107) mmol/L Glucose 121 H (74-99) mg/dL AST 44 H (14-36) U/L Thrombosis Risk Factor Assmnt - DVT/VTE Prophylaxis DVT/VTE Prophylaxis: Pharmacologic Prophylaxis ordered - Choose All That Apply Any of the Below Risk Factors Present?: Yes Each Factor Represents 1 point: Obesity (BMI >25) Other Risk Factors: Yes Each Risk Factor Represents 3 Points: Age 75 years or older Other congenital or acquired thrombophilia - If yes, enter type in comment: No Thrombosis Risk Factor Assessment Total Risk Factor Score: 4 Thrombosis Risk Factor Assessment Level: Moderate Risk Assessment and Plan Assessment: new onset atrial fibrillation with and rapid ventricular rate. Currently converted to sinus rhythm. paroxysmal atrial fibrillation Right lower extremity swelling greater than left. Rule out DVT Diabetes type 2 [id number] hypothyroidism. TSH within normal limits hypertension hyperlipidemia Osteoarthritis Diabetic peripheral neuropathy Diverticular disease family history of coronary artery disease.Father of a [place] at the age of 39yrs obesity with BMI 31.9 Plan: Patient will be continued on telemetry monitoring. Currently heart rate is controlled. Discontinued Cardizem drip and heparin drip.patient does have bradycardia with first-degree AV block after discontinuation of Cardizem drip. Beta blockers on hold currently. Patient was started on anticoagulation with Eliquis Cardiology is following. follow-up lower extremityduplex scan and echocardiogram. Continue with home medications and further recommendations based on the clinical course. Time with Patient: Greater than 30
[2019-04-14 06:30] LABS: Basophils # (A) 0.1 k/uL (0-0.2); Basophils % (A) 1 %; Eosinophils # (A) 0.2 k/uL (0-0.7); Eosinophils % (A) 3 %; HCT 38.9 % (34.0-46.0); HGB 12.5 gm/dL (11.4-16.0); Lymphocytes # (A) 1.8 k/uL (1.0-4.8); Lymphocytes % (A) 27 %; MCH 30.3 pg (25.0-35.0); MCHC 32.1 g/dL (31.0-37.0); MCV 94.5 fL (80.0-100.0); Mean Platelet Volume 8.1; Monocytes # (A) 0.4 k/uL (0-1.0); Monocytes % (A) 7 %; Neutrophils # (A) 3.9 k/uL (1.3-7.7); Neutrophils % (A) 60 %; Platelet Count 118 k/uL (150-450); RBC 4.12 m/uL (3.80-5.40); RDW 12.6 % (11.5-15.5); WBC 6.4 k/uL (3.8-10.6)
[2019-04-14 06:41] LABS: Calcium 9.2 mg/dL (8.4-10.2); Potassium 3.9 mmol/L (3.5-5.1)
[2019-04-14] MEDS: LEVOTHYROXINE 88 MCG TAB PO SCH (07:04)
[2019-04-14] MEDS: APIXABAN 5 MG TAB PO SCH ×2 (07:53→21:29)
[2019-04-14] MEDS: CHOLECALCIFEROL 1,000 UNIT TAB PO SCH (07:53)
[2019-04-14] MEDS: CYANOCOBALAMIN 500 MCG TAB PO SCH (07:53)
[2019-04-14] MEDS: LISINOPRIL-HCTZ 10-12.5 MG 1 EACH TAB PO SCH (08:52)
[2019-04-14] MEDS ORDERED: FAMOTIDINE 20 MG TAB PO SCH (09:00)
--- NOTE | 2019-04-14 12:51 | P.PN ---
Subjective Progress Note Date: 04/14/19 this is a pleasant 88-year-old female with documented history of hypertension, hyperlipidemia, diabetes, hypothyroidism, who had been having symptoms of what she felt was a heartburn sensation, she states it would be worse in the morning and as the day went on it with progressively improved. The following day upon wakening she had the same symptoms, much more severe, and not seeming to dissipate as the day went on. She denies any dizziness or lightheadedness, no chest discomfort, no palpitations or heart racing.her EKG on presentation to the emergency room showed atrial fibrillation with a rapid ventricular response. Chest x-ray showed cardiomegaly with no pleural effusions. Patient was initiated on IV Cardizem after being given a bolus of 10 mg, in the emergency room, she has since converted to normal sinus rhythm. Subsequent EKG shows a sinus bradycardia with a first-degree AV block, LVH strain pattern. Blood pressure on arrival 148/90 with a heart rate of 140, 95% on room air.blood pressure this morning 100/50, heart rate in the 50s, 97% on room air. White blood cell count 7.5, hemoglobin 14.5, platelet count 142. Sodium 142, potassium 3.8, BUN 16, creatinine 0.8, magnesium 1.8. Initial troponin is negative. 04/14/2019 Patient seen and examined this morning, continues to be in a sinus bradycardia with first-degree AV block and occasional PACs. Echocardiogram with Doppler study revealed a normal left ventricular systolic function.blood pressure this morning 130/60 with a heart rate in the 60s, 96% on room air.White blood cell count 6.4, hemoglobin 12.5, platelet count 118, sodium 138, potassium 3.9, BUN 15, creatinine 0.8. Objective - Vital Signs Vital signs: Vital Signs Temp 97.2 F L 04/14/19 11:35 Pulse 57 L 04/14/19 11:35 Resp 20 04/14/19 11:35 BP 131/69 04/14/19 11:35 Pulse Ox 96 04/14/19 11:35 Intake & Output 04/13/19 04/14/19 04/14/19 18:59 06:59 18:59 Intake Total 400 240 Balance 400 240 Weight 95.254 kg 95.164 kg Intake: Oral 400 240 Other: # Voids 1 2 - Exam PHYSICAL EXAMINATION: GENERAL:78-year-old female in no acute distress at the time of my examination HEENT: Head is atraumatic, normocephalic. Pupils equal, round. Sclera anicteric. Conjunctiva are clear. Mucous membranes of the mouth are moist. Neck is supple. There is no elevated jugular venous pressure.no carotid bruit is heard. HEART EXAMINATION: [Heart S1, S2 normal. No murmur or gallop heard.] CHEST EXAMINATION:[ Lungs are clear to auscultation and precussion. No chest wall tenderness is noted on palpation or with deep breathing.] ABDOMEN: [ Soft, nontender. Bowel sounds are heard. No organomegaly noted]. EXTREMITIES:[ 2+ peripheral pulses with 1+ lower extremity edema to the right leg, right leg is significantly larger than the left, Homans negative]. NEUROLOGIC [patient is awake, alert and oriented X3.] - Labs CBC & Chem 7: 04/14/19 05:38 04/14/19 05:38 Labs: Abnormal Lab Results - Last 24 Hours (Table) 04/13/19 04/14/19 04/14/19 Range/Units 12:54 05:38 05:38 Plt Count 118 L (150-450) k/uL APTT 80.1 H (22.0-30.0) sec Glucose 101 H (74-99) mg/dL Assessment and Plan Plan: assessment and plan #1 atrial fibrillation with rapid ventricular response, new onset for the patient, currently in normal sinus rhythm, paroxysmal #2 diabetes #3 hypertension #4 hyperlipidemia #5 hypothyroidism Plan From cardiology's perspective, we will continue this patient on her current medications.plan for discharge in 24 hours. DNP note has been reviewed, I agree with a documented findings and plan of care. Patient was seen and examined.
[2019-04-14] MEDS: ATORVASTATIN 10 MG TAB PO SCH (21:29)
[2019-04-15 06:31] LABS: Mean Platelet Volume 8.3; Platelet Count 138 k/uL (150-450)
[2019-04-15] MEDS: LISINOPRIL-HCTZ 10-12.5 MG 1 EACH TAB PO SCH (06:42)
[2019-04-15] MEDS: CHOLECALCIFEROL 1,000 UNIT TAB PO SCH (06:42)
[2019-04-15] MEDS: CYANOCOBALAMIN 500 MCG TAB PO SCH (06:42)
[2019-04-15] MEDS: APIXABAN 5 MG TAB PO SCH (06:42)
[2019-04-15] MEDS: LEVOTHYROXINE 88 MCG TAB PO SCH (06:42)
[2019-04-15] MEDS ORDERED: FAMOTIDINE 20 MG TAB PO SCH (09:00)
[2019-04-15 12:39] VITALS: BP 130/82; PULSE 58; RESP 14; TEMP 98.7
--- NOTE | 2019-04-15 14:29 | P.PN ---
Subjective Progress Note Date: 04/15/19 this is a pleasant 88-year-old female with documented history of hypertension, hyperlipidemia, diabetes, hypothyroidism, who had been having symptoms of what she felt was a heartburn sensation, she states it would be worse in the morning and as the day went on it with progressively improved. The following day upon wakening she had the same symptoms, much more severe, and not seeming to dissipate as the day went on. She denies any dizziness or lightheadedness, no chest discomfort, no palpitations or heart racing.her EKG on presentation to the emergency room showed atrial fibrillation with a rapid ventricular response. Chest x-ray showed cardiomegaly with no pleural effusions. Patient was initiated on IV Cardizem after being given a bolus of 10 mg, in the emergency room, she has since converted to normal sinus rhythm. Subsequent EKG shows a sinus bradycardia with a first-degree AV block, LVH strain pattern. Blood pressure on arrival 148/90 with a heart rate of 140, 95% on room air.blood pressure this morning 100/50, heart rate in the 50s, 97% on room air. White blood cell count 7.5, hemoglobin 14.5, platelet count 142. Sodium 142, potassium 3.8, BUN 16, creatinine 0.8, magnesium 1.8. Initial troponin is negative. 04/14/2019 Patient seen and examined this morning, continues to be in a sinus bradycardia with first-degree AV block and occasional PACs. Echocardiogram with Doppler study revealed a normal left ventricular systolic function.blood pressure this morning 130/60 with a heart rate in the 60s, 96% on room air.White blood cell count 6.4, hemoglobin 12.5, platelet count 118, sodium 138, potassium 3.9, BUN 15, creatinine 0.8. 04/15/2019 Patient seen and examined this morning, hemodynamically stable, heart rate around 50, continues to be in a sinus bradycardia with first-degree AV block. Objective - Vital Signs Vital signs: Vital Signs Temp 98.7 F 04/15/19 12:00 Pulse 58 L 04/15/19 12:00 Resp 14 04/15/19 12:00 BP 130/82 04/15/19 12:00 Pulse Ox 95 04/15/19 12:00 Intake & Output 04/14/19 04/15/19 04/15/19 18:59 06:59 18:59 Intake Total 240 358 Balance 240 358 Weight 96 kg Intake: Oral 240 358 Other: Voiding Method Toilet Toilet # Voids 1 1 - Exam PHYSICAL EXAMINATION: GENERAL:78-year-old female in no acute distress at the time of my examination HEENT: Head is atraumatic, normocephalic. Pupils equal, round. Sclera anicteric. Conjunctiva are clear. Mucous membranes of the mouth are moist. Neck is supple. There is no elevated jugular venous pressure.no carotid bruit is heard. HEART EXAMINATION: [Heart S1, S2 normal. No murmur or gallop heard.] CHEST EXAMINATION:[ Lungs are clear to auscultation and precussion. No chest wall tenderness is noted on palpation or with deep breathing.] ABDOMEN: [ Soft, nontender. Bowel sounds are heard. No organomegaly noted]. EXTREMITIES:[ 2+ peripheral pulses with 1+ lower extremity edema to the right leg, right leg is significantly larger than the left, Homans negative]. NEUROLOGIC [patient is awake, alert and oriented X3.] - Labs CBC & Chem 7: 04/15/19 06:13 04/14/19 05:38 Labs: Abnormal Lab Results - Last 24 Hours (Table) 04/15/19 Range/Units 06:13 Plt Count 138 L (150-450) k/uL Assessment and Plan Plan: assessment and plan #1 atrial fibrillation with rapid ventricular response, new onset for the patient, currently in normal sinus rhythm, paroxysmal #2 diabetes #3 hypertension #4 hyperlipidemia #5 hypothyroidism Plan From cardiology's perspective, we will continue this patient on her current medications.she may be able to be discharged home today. Follow-up appointment in the office in one week. DNP note has been reviewed, I agree with a documented findings and plan of care. Patient was seen and examined.
== END 2019-04-15 13:39 | disposition home or self-care (01) | DRG 310 ==
LOC: EC 05:56 → 3SCARD 08:40 → OBSVTOIN 08:40
PROVIDERS: ADMIT Internal Medicine; ATTEND Internal Medicine
DX: I48.0 Paroxysmal atrial fibrillation (principal); M16.11 Unilateral primary osteoarthritis, right hip; I11.9 Hypertensive heart disease without heart failure; E78.5 Hyperlipidemia, unspecified; E11.42 Type 2 diabetes mellitus with diabetic polyneuropathy; E03.9 Hypothyroidism, unspecified; I44.0 Atrioventricular block, first degree; Z96.1 Presence of intraocular lens; R00.1 Bradycardia, unspecified; K57.90 Diverticulosis of intestine, part unspecified, without perforation or abscess without bleeding; Z88.0 Allergy status to penicillin; Z88.2 Allergy status to sulfonamides; Z79.890 Hormone replacement therapy; Z82.49 Family history of ischemic heart disease and other diseases of the circulatory system; Z79.84 Long term (current) use of oral hypoglycemic drugs; Z90.49 Acquired absence of other specified parts of digestive tract; Z98.890 Other specified postprocedural states; Z80.9 Family history of malignant neoplasm, unspecified; Z98.42 Cataract extraction status, left eye; Z98.41 Cataract extraction status, right eye
CPT/HCPCS: 36415; 71046; 80048; 80053; 81003; 83735; 84443; 84484; 85025; 85049; 85610; 85730; 93005; 93306; 94760; 96365; 96366; 96368; 96376; 99291

== ENCOUNTER 2019-06-29 09:55 | Emergency (ER) | payer MEDICARE, OTHER ==
[2019-06-29 10:03] VITALS: TEMP 97.8
--- NOTE | 2019-06-29 10:32 | ED ---
General Adult HPI - General Chief complaint: Fall Stated complaint: Fall/knee pain Time Seen by Provider: 06/29/19 10:02 Source: patient, EMS, RN notes reviewed Mode of arrival: EMS Limitations: physical limitation - History of Present Illness Initial comments: Patient is a pleasant 88-year-old female presenting to the emergency Department with complaints of left knee pain. This morning patient was getting up out of her chair when she forgot unfolded. Patient tripped and fell going forward onto her left knee. Patient complains of swelling and pain since that time. Patient is not able to bear weight. No other area of injury or concern. No head injury or loss of consciousness. No neck pain. No abdomen or chest pain. - Related Data Home Medications Medication Instructions Recorded Confirmed Lisinopril-Hctz 10-12.5 mg 1 tab PO DAILY 09/20/13 04/13/19 [Zestoretic 10-12.5] Simvastatin [Zocor] 20 mg PO HS 09/20/13 04/13/19 sitaGLIPtin [Januvia] 100 mg PO DAILY 09/20/13 04/13/19 Pyridoxine [Vitamin B-6] 100 mg PO DAILY 01/18/16 04/13/19 Vit A/Vit C/Vit E/Zinc/Copper 1 cap PO DAILY 01/18/16 04/13/19 [ICAPS SOFTGEL] Cyanocobalamin (Vitamin B-12) 1,000 mcg PO DAILY 08/02/16 04/13/19 [Vitamin B-12] L.acidoph,Paracasei, B.lactis 1 cap PO DAILY 08/02/16 04/13/19 [Probiotic] Cholecalciferol [Vitamin D3 (25 1,000 unit PO DAILY 04/13/19 04/13/19 Mcg = 1000 Iu)] Docusate 250mg Caps 250 mg PO DAILY 04/13/19 04/13/19 Levothyroxine Sodium [Synthroid] 88 mcg PO DAILY 04/13/19 04/13/19 Previous Rx's Medication Instructions Recorded Apixaban [Eliquis] 5 mg PO BID #60 tab 04/15/19 Allergies Allergy/AdvReac Type Severity Reaction Status Date / Time Penicillins Allergy Unknown Verified 04/13/19 07:37 Childhood Sulfa (Sulfonamide AdvReac Nausea/Vomiting/Loss Verified 12/16/19 07:37 Antibiotics) of Appetite Review of Systems ROS Statement: Those systems with pertinent positive or pertinent negative responses have been documented in the HPI. ROS Other: All systems not noted in ROS Statement are negative. Constitutional: Denies: fever Eyes: Denies: eye pain ENT: Denies: ear pain Respiratory: Denies: cough Cardiovascular: Denies: chest pain Endocrine: Denies: fatigue Gastrointestinal: Denies: abdominal pain Genitourinary: Denies: dysuria Musculoskeletal: Denies: back pain Skin: Denies: rash Neurological: Denies: weakness Past Medical History Past Medical History: Diabetes Mellitus, Hyperlipidemia, Hypertension, Osteoarthritis (OA), Thyroid Disorder Additional Past Medical History / Comment(s): NIDDM type II, neuropathy bilateral feet, bilateral leg edema with R side worse, arthritis R hip, hypothyroid, diverticular disease, constipation History of Any Multi-Drug Resistant Organisms: None Reported Past Surgical History: Cholecystectomy Additional Past Surgical History / Comment(s): Colonoscopies, bilateral cataract removals/lens implants, tongue repair Past Anesthesia/Blood Transfusion Reactions: No Reported Reaction Past Psychological History: No Psychological Hx Reported Smoking Status: Never smoker Past Alcohol Use History: None Reported Past Drug Use History: None Reported - Past Family History Father Family Medical History: Myocardial Infarction ([place]) Additional Family Medical History / Comment(s): Father of a CO at the age of 39yrs. Mother Family Medical History: Cancer Additional Family Medical History / Comment(s): Mother lived to be 92yrs old. General Exam Limitations: physical limitation General appearance: alert, in no apparent distress Head exam: Present: normocephalic Eye exam: Present: normal appearance, PERRL ENT exam: Present: normal oropharynx Neck exam: Present: normal inspection. Absent: tenderness Respiratory exam: Present: normal lung sounds bilaterally Cardiovascular Exam: Present: regular rate, normal rhythm Expanded Peripheral pulses: 2+: Dorsalis Pedis (R), Dorsalis Pedis (L) GI/Abdominal exam: Present: soft. Absent: tenderness Extremities exam: Present: tenderness (left Anterior knee with tenderness and swelling. Tenderness is mostly proximal fibula) Neurological exam: Present: alert. Absent: motor sensory deficit Expanded Sensory exam: Lower Extremity Light Touch: Normal Motor strength exam: RUE: 5, LUE: 5, RLE: 5, LLE: 5 Psychiatric exam: Present: normal affect, normal mood Skin exam: Present: normal color Course Vital Signs 06/29/19 09:59 Temperature 97.8 F Pulse Rate 95 Respiratory 17 Rate Blood Pressure 143/80 O2 Sat by Pulse 93 L Oximetry Medical Decision Making - Medical Decision Making Patient reevaluated and updated. Family is present. - Radiology Data Radiology results: image reviewed (Left knee x-ray shows arthritis, no acute fracture) Disposition Clinical Impression: Fall, Knee contusion Disposition: HOME SELF-CARE Condition: Stable Instructions (If sedation given, give patient instructions): Fall Prevention for Older Adults (ED), Knee Pain (ED) Additional Instructions: Please follow-up with primary care physician in the next couple days for recheck. Please also follow-up with orthopedics. Return for increased pain, swelling, worsening symptoms or other concerns. Ice to affected area. Is patient prescribed a controlled substance at d/c from ED?: No Referrals: Tabitha Solorio MD [Primary Care Provider] - 1-2 days Arden Gomez MD [Medical Doctor] - 1-2 days Time of Disposition: 11:38
--- NOTE | 2019-06-29 10:43 | XR ---
EXAMINATION TYPE: XR knee complete LT DATE OF EXAM: 06/29/2019 CLINICAL HISTORY: Left knee pain after fall injury. TECHNIQUE: Three views of the left knee are obtained. COMPARISON: None. FINDINGS: The exam noted suboptimal due to incomplete extension. There is no acute fracture/dislocat ion evident in the left knee. Advanced narrowing patellofemoral compartment with [id number] spu rring. Increased density suprapatellar bursa suspicious for fairly large joint effusion. Mild spurrin g medial and lateral tibiofemoral compartments with suspected early moderate joint space loss. The ov erlying soft tissue appears unremarkable. IMPRESSION: There is no acute fracture or dislocation in the left knee.
[2019-06-29] MEDS ORDERED: KETOROLAC 30 MG/ML 1 ML VIAL IVP STA (11:35)
[2019-06-29] MEDS ORDERED: ACET/COD 300 MG/30 MG STARTER PACK 6 TAB BTL PO STA (11:36)
[2019-06-29 12:05] VITALS: BP 136/71; PULSE 71; RESP 18
== END 2019-06-29 12:21 | disposition home or self-care (01) ==
LOC: EC 09:55
DX: S80.02XA Contusion of left knee, initial encounter (principal); M17.12 Unilateral primary osteoarthritis, left knee; E11.42 Type 2 diabetes mellitus with diabetic polyneuropathy; E78.5 Hyperlipidemia, unspecified; I10 Essential (primary) hypertension; E03.9 Hypothyroidism, unspecified; K59.00 Constipation, unspecified; Z88.0 Allergy status to penicillin; Z88.2 Allergy status to sulfonamides; Z79.84 Long term (current) use of oral hypoglycemic drugs; Z79.890 Hormone replacement therapy; Z79.899 Other long term (current) drug therapy; W01.0XXA Fall on same level from slipping, tripping and stumbling without subsequent striking against object, initial encounter; Y93.89 Activity, other specified
CPT/HCPCS: 73562; 99284; 96374; J1885

== ENCOUNTER 2019-07-07 11:24 | Inpatient (IN) | payer MEDICARE, OTHER ==
--- NOTE | 2019-07-07 12:06 | ED ---
General Adult HPI - General Chief complaint: Extremity Injury, Lower Stated complaint: fall Time Seen by Provider: 07/07/19 11:32 Source: patient, family Mode of arrival: wheelchair Limitations: no limitations - History of Present Illness Initial comments: Dictation was produced using [employer] dictation software. please excuse any grammatical, word or spelling errors. Chief Complaint: 88-year-old male presents with left knee pain and inability to walk. History of Present Illness: His 88-year-old female she presents with left knee pain. Patient just had a computed tomography scan that was ordered on an outpatient basis. She fell down approximately one week ago. She states she was sitting in a recliner when the phone rang she was startled stood up quickly and fell. She doesn't exactly recall the details of the fall. She does report that she had significant knee pain at that time. Patient was evaluated and had a knee x-ray after the initial injury in the emergency room that showed no acute injuries. Patient was seen by primary care physician and given referral to orthopedic surgery. Prior to orthopedic surgery visit computed tomography scan was ordered of the left knee. Daughter at bedside is adamant about patient being admitted for rehabilitation because she is too much work to take care of at home. The ROS documented in this emergency department record has been reviewed and confirmed by me. Those systems with pertinent positive or negative responses have been documented in the HPI. All other systems are other negative and/or noncontributory. PHYSICAL EXAM: General Impression: Alert and oriented x3, not in acute distress HEENT: Normocephalic atraumatic, extra-ocular movements intact, pupils equal and reactive to light bilaterally, mucous membranes moist. Cardiovascular: Heart regular rate and rhythm, S1&S2 audible, no murmurs, rubs or gallops Chest: Lungs clear to auscultation bilaterally, no rhonchi, no wheeze, no rales Abdomen: Bowel sounds present, abdomen soft, non-tender, non-distended, no organomegaly Musculoskeletal: Pulses present and equal in all extremities, no peripheral edema, swollen left knee, tenderness along the entire aspect of the left knee specially worse at the lateral portion. Soft compartments of the left lower extremity Motor: no focal deficits noted Neurological: CN II-XII grossly intact, no focal motor or sensory deficits noted Skin: Intact with no visualized rashes Psych: Normal affect and mood ED course: year-old feel presents with left knee pain. She had a computed tomography scan performed today. Ends upon arrival are within acceptable limits. CT imaging was reviewed by myself. Showing acute lateral tibial plateau fracture. Pending radiology reading. Discussed patient case with Darren Ascencio who is mid-level provider for [facility]. He reports that patient does not have any admittable diagnoses and to have patient in a knee immobilizer and toe-touch weightbearing. Patient's family member is adamant about her being admitted. Given that she does not have safe disposition believe that's a reasonable option.CT films were reviewed with radiologist. Patient has comminuted intra-articular depressed fracture of the lateral tibial plateau. Patient is in significant amount of pain she will be admitted to the hospital. Discussed patient case with Dr. Nunez who requested that we contact surgery given that there is traumatic injury within 2 weeks. Discussed patient case with Dr. Navas who is willing to accept patient's care with orthopedic surgery and medical consultation. Basic labs ordered for admission. Chest x-ray and EKG were ordered for admission. - Related Data Home Medications Medication Instructions Recorded Confirmed Lisinopril-Hctz 10-12.5 mg 1 tab PO DAILY 09/20/13 04/13/19 [Zestoretic 10-12.5] Simvastatin [Zocor] 20 mg PO HS 09/20/13 04/13/19 sitaGLIPtin [Januvia] 100 mg PO DAILY 09/20/13 04/13/19 Pyridoxine [Vitamin B-6] 100 mg PO DAILY 01/18/16 04/13/19 Vit A/Vit C/Vit E/Zinc/Copper 1 cap PO DAILY 01/18/16 04/13/19 [ICAPS SOFTGEL] Cyanocobalamin (Vitamin B-12) 1,000 mcg PO DAILY 08/02/16 04/13/19 [Vitamin B-12] L.acidoph,Paracasei, B.lactis 1 cap PO DAILY 08/02/16 04/13/19 [Probiotic] Cholecalciferol [Vitamin D3 (25 1,000 unit PO DAILY 04/13/19 04/13/19 Mcg = 1000 Iu)] Docusate 250mg Caps 250 mg PO DAILY 04/13/19 04/13/19 Levothyroxine Sodium [Synthroid] 88 mcg PO DAILY 04/13/19 04/13/19 Alendronate Sodium [Fosamax] 70 mg PO LUQUE 07/07/19 07/07/19 Previous Rx's Medication Instructions Recorded Apixaban [Eliquis] 5 mg PO BID #60 tab 04/15/19 Allergies Allergy/AdvReac Type Severity Reaction Status Date / Time Penicillins Allergy Unknown Verified 07/07/19 12:45 Childhood Sulfa (Sulfonamide AdvReac Nausea/Vomiting/Loss Verified 07/07/19 12:45 Antibiotics) of Appetite Review of Systems ROS Statement: Those systems with pertinent positive or pertinent negative responses have been documented in the HPI. ROS Other: All systems not noted in ROS Statement are negative. Past Medical History Past Medical History: Diabetes Mellitus, Hyperlipidemia, Hypertension, Osteoarthritis (OA), Thyroid Disorder Additional Past Medical History / Comment(s): NIDDM type II, neuropathy bilateral feet, bilateral leg edema with R side worse, arthritis R hip, hypothyroid, diverticular disease, constipation History of Any Multi-Drug Resistant Organisms: None Reported Past Surgical History: Cholecystectomy Additional Past Surgical History / Comment(s): Colonoscopies, bilateral cataract removals/lens implants, tongue repair Past Anesthesia/Blood Transfusion Reactions: No Reported Reaction Past Psychological History: No Psychological Hx Reported Smoking Status: Never smoker Past Alcohol Use History: None Reported Past Drug Use History: None Reported - Past Family History Father Family Medical History: Myocardial Infarction ([place]) Additional Family Medical History / Comment(s): Father of a OR at the age of 39yrs. Mother Family Medical History: Cancer Additional Family Medical History / Comment(s): Mother lived to be 92yrs old. General Exam Limitations: no limitations Course Vital Signs 07/07/19 11:27 Temperature 98.6 F Pulse Rate 65 Respiratory 20 Rate Blood Pressure 150/105 O2 Sat by Pulse 99 Oximetry Disposition Clinical Impression: Tibial plateau fracture Disposition: ADMITTED IP TO THIS HOSP Condition: Fair Referrals: Tabitha Solorio MD [Primary Care Provider] - 1-2 days Decision Time: 12:55
[2019-07-07] MEDS ORDERED: MORPHINE SULFATE 4 MG/ML SYRINGE IV STA (12:12)
--- NOTE | 2019-07-07 12:18 | CT ---
EXAMINATION TYPE: CT knee LT wo con DATE OF EXAM: 07/07/2019 COMPARISON: None compared. HISTORY: Pain Lt Knee, h/o fall CT DLP: 269 mGycm Automated exposure control for dose reduction was used. FINDINGS: There is a comminuted intra-articular depressed fracture of the lateral tibial plateau with depressio n 8 mm and extends into the tibial spines. Chondrocalcinosis is seen of the medial and lateral compar tment. The most displaced lateral fracture fragment is displaced only 3 mm laterally. Numerous commin uted fragments are only minimally displaced. There is also amorphous high density posterior to the me dial femoral condyle and axial image 24 with donor site seen representing multiple small fracture fra gments. There is an associated moderate lipohemarthrosis. Diffuse muscular atrophy is noted. Moderate tricompartmental arthropathy is seen. No additional fracture identified. Mild subcutaneous edema. Di ffuse osseous demineralization. IMPRESSION: COMMINUTED INTRA-ARTICULAR DEPRESSED FRACTURE OF THE LATERAL TIBIAL PLATEAU WITH EXTENT INTO THE TIBI AL SPINES. MULTIPLE SMALL FRACTURE FRAGMENTS ARE ALSO SEEN OF THE POSTERIOR RIGHT MEDIAL FEMORAL COND YLE WITH ASSOCIATED DONOR SITE. MODERATE LIPOHEMARTHROSIS IS ALSO SEEN.
[2019-07-07] MEDS ORDERED: MORPHINE SULFATE 4 MG/ML SYRINGE IV PRN (12:49)
[2019-07-07] MEDS ORDERED: NALOXONE 0.4 MG/ML 1 ML VIAL IV PRN (12:49)
[2019-07-07] MEDS ORDERED: ONDANSETRON 4 MG/2 ML VIAL IVP PRN (12:49)
[2019-07-07 13:12] LABS: Basophils % (A) 0 %; Eosinophils # (A) 0.1 k/uL (0-0.7); Eosinophils % (A) 1 %; HCT 40.4 % (34.0-46.0); HGB 13.4 gm/dL (11.4-16.0); Lymphocytes # (A) 1.4 k/uL (1.0-4.8); Lymphocytes % (A) 14 %; MCH 30.6 pg (25.0-35.0); MCHC 33.1 g/dL (31.0-37.0); MCV 92.2 fL (80.0-100.0); Mean Platelet Volume 7.6; Monocytes # (A) 0.7 k/uL (0-1.0); Monocytes % (A) 7 %; Neutrophils # (A) 7.8 k/uL (1.3-7.7); Neutrophils % (A) 77 %; Platelet Count 179 k/uL (150-450); RBC 4.38 m/uL (3.80-5.40); RDW 12.6 % (11.5-15.5); WBC 10.1 k/uL (3.8-10.6)
[2019-07-07 13:15] LABS: African American GFR (CKD) >90 (>60 ml/min/1.73 sqM); Anion Gap 8 mmol/L; Blood Urea Nitrogen 17 mg/dL (7-17); Calcium 9.1 mg/dL (8.4-10.2); Carbon Dioxide 27 mmol/L (22-30); Chloride 101 mmol/L (98-107); Glucose 139 mg/dL (74-99); Non-African American GFR(CKD) 78 (>60 ml/min/1.73 sqM); Potassium 3.3 mmol/L (3.5-5.1); Sodium 136 mmol/L (137-145)
--- NOTE | 2019-07-07 13:21 | XR ---
EXAMINATION TYPE: XR chest 1V portable DATE OF EXAM: 07/07/2019 COMPARISON: Prior chest 04/13/2019 HISTORY: Preop for left knee fracture TECHNIQUE: Single frontal view of the chest is obtained. FINDINGS: Patient is rotated. There is an underlying scoliosis. There is no focal air space opacity, pleural effusion, or pneumothorax seen. The cardiac silhouette size is stable accounting for differe nces in technique. The osseous structures are intact, arthropathy present at the acromioclavicular joints. IMPRESSION: No acute process.
[2019-07-07 13:26] LABS: Partial Thromboplastin Time 25.8 sec (22.0-30.0)
[2019-07-07] MEDS ORDERED: POTASSIUM CHLORIDE ER 20 MEQ TAB.ER PO STA (13:42)
[2019-07-07] MEDS: SODIUM CHLORIDE 0.9% 1,000 ML IV SCH (13:43)
[2019-07-07] MEDS ORDERED: ACETAMINOPHEN TAB 500 MG TAB PO PRN (19:07)
[2019-07-07] MEDS ORDERED: ALPRAZolam 0.25 MG TAB PO PRN (19:07)
[2019-07-07] MEDS ORDERED: HYDROmorphone 0.5 MG/0.5 ML SYRINGE IVP PRN (19:07)
[2019-07-07] MEDS ORDERED: Potassium Replacement Protocol 1 EACH MISC MISCELLANE PRN (19:08)
[2019-07-07 20:22] LABS: Albumin 3.2 g/dL (3.5-5.0); Calcium 8.7 mg/dL (8.4-10.2); Potassium 3.8 mmol/L (3.5-5.1); Total Bilirubin 0.7 mg/dL (0.2-1.3); Total Protein 6.1 g/dL (6.3-8.2)
[2019-07-07] MEDS: DOCUSATE 100 MG CAP PO SCH (20:46)
[2019-07-07] MEDS: LINAGLIPTIN 5 MG TABLET PO SCH (20:46)
[2019-07-07] MEDS: ATORVASTATIN 10 MG TAB PO SCH (20:46)
[2019-07-07] MEDS: HEPARIN SODIUM,PORCINE 5,000 UNIT/ML 1 ML VIAL SQ SCH (20:46)
[2019-07-07 21:20] LABS: Glucose,Whole Blood 129 mg/dL (75-99)
--- NOTE | 2019-07-08 05:26 | CONS ---
CONSULTATION DATE OF SERVICE: 07/07/2019 REASON FOR CONSULTATION: Advice regarding diabetes mellitus, hypertension, hyperlipidemia, other medical issues requested by Dr. Jimenez. HISTORY OF PRESENT ILLNESS: This 88-year-old woman with a past medical history of diabetes, hypertension, hyperlipidemia, history of DJD, hypothyroidism, history of cholecystectomy, being followed by Dr. Solorio in the outpatient setting apparently fell at home, losing her balance about a week ago. The patient apparently came to [facility] at that time and x-ray showed no evidence of any fractures and the patient has been staying at home for the last one week with great difficulties. The family was helping her out with some activities of daily living, but the patient has significant increasing swelling of the left knee and the family is not able to take care of the patient anymore and the patient unable to perform the activities of daily living and the patient was taken to [facility] and admitted for further evaluation treatment. There is no history of any fever, rigor or chills. No history of any headache, loss of consciousness, seizures. A CAT scan of the knee was done today which showed evidence of comminuted intra-articular depressed fracture of the lateral tibial plateau with extent into the tibial spines and multiple small fractures fragment also seen in the posterior right medial femoral condyle with associated donor site and moderate hemarthrosis also noted. Patient's knee is swollen and the patient was admitted for further evaluation and treatment under Surgery. There is no history of fever, rigors. No headache, loss of consciousness, or seizures. A chest x-ray done and the EKG showed no acute process. PAST MEDICAL HISTORY: History of DJD, history of diabetes, hypertension, hyperlipidemia, history of DJD, hypothyroidism, history of cholecystectomy. MEDICATIONS: Medications prior to admission home medications are: 1. Januvia 100 mg p.o. daily. 2. ICAPS 1 p.o. daily. 3. Zocor 20 mg at bedtime. 4. Vitamin B6, 100 mg p.o. daily. 5. Zestoretic 1 tab p.o. daily. 6. Synthroid 88 mcg p.o. daily. 7. Probiotic 1 p.o. daily. 8. Colace 250 mg at bedtime. 9. Vitamin B12, 1000 mcg p.o. daily. 10.Vitamin D3, 1000 daily. 11.Eliquis 5 mg p.o. b.i.d. 12.Fosamax 70 mg subcu Saturday. ALLERGIES: Allergies are PENICILLIN and SULFA. FAMILY HISTORY: History of myocardial infarction in the family. SOCIAL HISTORY: No history of smoking. No history of alcohol. REVIEW OF SYSTEMS: ENT: Diminished hearing and diminished vision. CARDIOVASCULAR SYSTEM: As mentioned earlier. RESPIRATORY SYSTEM: As mentioned earlier. GI: No nausea. : No dysuria. NERVOUS SYSTEM: No numbness or weakness. ALLERGY/IMMUNOLOGY: No asthma or hayfever. MUSCULOSKELETAL: As mentioned earlier. HEMATOLOGY/ONCOLOGY: No history of anemia. ENDOCRINE: Diabetes and hypothyroidism. CONSTITUTIONAL: As mentioned earlier. DERMATOLOGY: Negative. RHEUMATOLOGY: Negative. PSYCHIATRY: As mentioned earlier. PHYSICAL EXAMINATION: The patient is alert and oriented x3. Pulse is 57, blood pressure 119/72, respirations 16, temperature 97.5, pulse ox 91% on room air. HEENT: Conjunctivae normal. Oral mucosa moist, Neck is no jugular venous distention. No carotid bruit. No lymph node enlargement. CARDIOVASCULAR: S1, S2 muffled and occasional irregularity. RESPIRATORY: Breath sounds diminished at the bases. A few scattered rhonchi and crackles. ABDOMEN: Soft, obese, nontender. LEGS: Significant pain and swelling and limitation of the left knee joint present. Fluctuation also present. Some ecchymotic areas also present. NERVOUS SYSTEM: Higher functions as mentioned. Moves all 4 limbs. No focal motor or sensory deficits. LYMPHATICS: No lymphadenopathy of the neck, axillae or groin. SKIN: No ulcer, rash or bleeding. JOINTS: No active deforming arthropathy. LABS: CBC within normal limits. Sodium 136, potassium 3.3, glucose 139. ASSESSMENT: 1. Fall and severe left knee joint pain and swelling with community intra-articular depressed fracture of the lateral tibial plateau with extending to the tibial spines and multiple small fracture fragments of the posterior right medial femoral condyle with associated donor site, moderate lip and as well as hemarthrosis of the left knee joint. 2. Severe gait dysfunction because of the above. 3. Hyponatremia. 4. Hypokalemia. 5. Diabetes mellitus type 2. 6. Hypertension. 7. Hyperlipidemia. 8. History of degenerative joint disease. 9. Hypothyroidism. 10.History of peripheral neuropathy bilateral feet. 11.Bilateral leg edema. 12.History of degenerative joint disease. 13.History of diverticular disease. 14.History of cholecystectomy. 15.History of colonoscopies. 16.Obesity with body mass index of 31.8. 17.FULL CODE. RECOMMENDATIONS AND DISCUSSION: This 88-year-old woman presented with multiple complex medical issues, at this time I recommend to continue the current medications, continue symptomatic treatment. Otherwise at this time I would recommend symptomatic treatment, orthopedic evaluation, possible aspiration. Otherwise, I would also recommend orthopedic evaluation and follow closely with Surgery. Guarded prognosis because of multiple complex medical issues. As mentioned earlier, the patient had multiple comorbidities and significant issues with the left knee which is heavily swollen with multiple abnormalities. I would recommend PT, OT evaluation, and possible ECF rehab. Otherwise, we will follow the patient closely with you and Dr. Jimenez. for letting us participate in this patient. The patient may be asked to follow with Dr. Solorio closely after discharge as well. MMYIL / IJN: [id number] /
[2019-07-08] MEDS: LEVOTHYROXINE 88 MCG TAB PO SCH (06:09)
[2019-07-08 07:26] LABS: Glucose,Whole Blood 112 mg/dL (75-99)
[2019-07-08 07:59] LABS: Basophils % (A) 0 %; Eosinophils # (A) 0.1 k/uL (0-0.7); Eosinophils % (A) 2 %; HCT 38.3 % (34.0-46.0); HGB 12.9 gm/dL (11.4-16.0); Lymphocytes # (A) 1.5 k/uL (1.0-4.8); Lymphocytes % (A) 17 %; MCH 30.8 pg (25.0-35.0); MCHC 33.6 g/dL (31.0-37.0); MCV 91.7 fL (80.0-100.0); Mean Platelet Volume 8.4; Monocytes # (A) 0.8 k/uL (0-1.0); Monocytes % (A) 8 %; Neutrophils # (A) 6.6 k/uL (1.3-7.7); Neutrophils % (A) 72 %; Platelet Count 167 k/uL (150-450); RBC 4.18 m/uL (3.80-5.40); RDW 12.6 % (11.5-15.5); WBC 9.1 k/uL (3.8-10.6)
[2019-07-08 08:01] LABS: African American GFR (CKD) >90 (>60 ml/min/1.73 sqM); Anion Gap 7 mmol/L; Blood Urea Nitrogen 19 mg/dL (7-17); Calcium 8.7 mg/dL (8.4-10.2); Carbon Dioxide 23 mmol/L (22-30); Chloride 106 mmol/L (98-107); Glucose 119 mg/dL (74-99); Non-African American GFR(CKD) 79 (>60 ml/min/1.73 sqM); Sodium 136 mmol/L (137-145)
[2019-07-08] MEDS: PANTOPRAZOLE 40 MG TABLET PO SCH (08:03)
[2019-07-08] MEDS: PYRIDOXINE 50 MG TAB PO SCH (08:03)
[2019-07-08 08:04] LABS: Potassium 4.6 mmol/L (3.5-5.1)
[2019-07-08] MEDS: CYANOCOBALAMIN 500 MCG TAB PO SCH (08:04)
[2019-07-08] MEDS: CHOLECALCIFEROL 1,000 UNIT TAB PO SCH (08:04)
[2019-07-08] MEDS: LACTOBACILLUS ACIDOPH & BULGAR 1 EACH PACKET PO SCH ×2 (08:04→08:05)
[2019-07-08] MEDS: VIT A,C & E-LUTEIN-MINERALS 1 EACH TAB PO SCH (08:04)
[2019-07-08] MEDS: LINAGLIPTIN 5 MG TABLET PO SCH (08:04)
[2019-07-08] MEDS: HEPARIN SODIUM,PORCINE 5,000 UNIT/ML 1 ML VIAL SQ SCH ×2 (08:05→20:41)
[2019-07-08] MEDS: LISINOPRIL-HCTZ 10-12.5 MG 1 EACH TAB PO SCH (08:10)
--- NOTE | 2019-07-08 09:33 | XR ---
EXAMINATION TYPE: XR foot complete LT DATE OF EXAM: 07/08/2019 CLINICAL HISTORY: Left foot pain TECHNIQUE: Frontal, lateral, and oblique images of the left foot are obtained. COMPARISON: None FINDINGS: There is either posttraumatic or postinfectious absence of the distal tuft of the first dis juliet phalanx. Punctate densities are seen along the irregular contour of the medial aspect of the dist al first metatarsal. No acute fracture is identified of the left foot. There is diffuse osseous demin eralization. IMPRESSION: Irregular cortex of the distal and medial aspect of the first metatarsal. Correlate for g out although this can be seen in other arthropathies. Absence of the distal tuft of the first digit m ay be infectious from osteomyelitis or posttraumatic.
--- NOTE | 2019-07-08 09:50 | P.HPOR ---
History of Present Illness H&P Date: 07/08/19 This patient is an 88-year-old female with past medical history of diabetes, hypertension, hyperlipidemia that presented to [facility] ER yesterday with complaints of inability to ambulate. The patient experienced a fall last Saturday06/29/19 when she fell out of her chair at home. She was experiencing severe left knee pain, and was brought to [facility] ER the same day on 06/29/19, where x-rays were taken of the left knee and the patient was told she did not sustain a fracture. She continued to experience severe left knee pain and was unable to ambulate due to the pain, therefore she was seen by Dr. Gomez on an outpatient basis on 07/03/2019. Computed tomography scan of the l eft knee was ordered due to the patient's severe pain with unremarkable x-rays, patient was instructed to remain nonweightbearing on the left lower extremity. The patient presented to [facility] yesterday to undergo computed tomography scan, although the family brought the patient to the ER following the computed tomography scan as they have been unable to take care of the patient and due to her nonweightbearing status. The patient was admitted for placement, under the care Dr. Gomez with consults placed to internal medicine for medical management. At the time of my exam, the patient is complaining of left knee pain, although it is controlled she is lying in bed. She also complains of left great toe pain. She is unsure when this pain started, although she believes it has been within the past few days. She also describes swelling and warmth of the toe. She does have a history of gout. She last experienced a flare of acute gout of her right great toe about 2 years ago. She states she otherwise feels well and has no additional complaints. She denies chest pain, shortness breath, nausea, vomiting, fevers, chills. Vital signs stable. Past Medical History Past Medical History: Diabetes Mellitus, Hyperlipidemia, Hypertension, Osteoarthritis (OA), Thyroid Disorder Additional Past Medical History / Comment(s): NIDDM type II, neuropathy bilateral feet, bilateral leg edema with R side worse, arthritis R hip, hypothyroid, diverticular disease, constipation History of Any Multi-Drug Resistant Organisms: None Reported Past Surgical History: Cholecystectomy Additional Past Surgical History / Comment(s): Colonoscopies, bilateral cataract removals/lens implants, tongue repair Past Anesthesia/Blood Transfusion Reactions: No Reported Reaction Past Psychological History: No Psychological Hx Reported Additional Psychological History / Comment(s): Pt resides alone. She no longer drives, her wendy's take her to appts. She uses a walker. She is otherwise, independent. Smoking Status: Never smoker Past Alcohol Use History: None Reported Past Drug Use History: None Reported - Past Family History Father Family Medical History: Myocardial Infarction (VT) Additional Family Medical History / Comment(s): Father of a VT at the age of 39yrs. Mother Family Medical History: Cancer Additional Family Medical History / Comment(s): Mother lived to be 92yrs old. Medications and Allergies Home Medications Medication Instructions Recorded Confirmed Type Lisinopril-Hctz 10-12.5 mg 1 tab PO DAILY 09/20/13 07/07/19 History [Zestoretic 10-12.5] Simvastatin [Zocor] 20 mg PO HS 09/20/13 07/07/19 History sitaGLIPtin [Januvia] 100 mg PO DAILY 09/20/13 07/07/19 History Pyridoxine [Vitamin B-6] 100 mg PO DAILY 01/18/16 07/07/19 History Vit A/Vit C/Vit E/Zinc/Copper 1 cap PO DAILY 01/18/16 07/07/19 History [ICAPS SOFTGEL] Cyanocobalamin (Vitamin B-12) 1,000 mcg PO DAILY 08/02/16 07/07/19 History [Vitamin B-12] L.acidoph,Paracasei, B.lactis 1 cap PO DAILY 08/02/16 07/07/19 History [Probiotic] Cholecalciferol [Vitamin D3 (25 1,000 unit PO DAILY 04/13/19 07/07/19 History Mcg = 1000 Iu)] Docusate 250mg Caps 250 mg PO HS 04/13/19 07/07/19 History Levothyroxine Sodium [Synthroid] 88 mcg PO DAILY 04/13/19 07/07/19 History Apixaban [Eliquis] 5 mg PO BID #60 tab 04/15/19 07/07/19 Rx Alendronate Sodium [Fosamax] 70 mg PO LUQUE 07/07/19 07/07/19 History Allergies Allergy/AdvReac Type Severity Reaction Status Date / Time Penicillins Allergy Unknown Verified 07/07/19 12:45 Childhood Sulfa (Sulfonamide AdvReac Nausea/Vomiting/Loss Verified 07/07/19 12:45 Antibiotics) of Appetite Physical Examination On examination, the patient is lying in bed in no apparent distress. She is alert and oriented 3. Her head appears normocephalic and atraumatic. Her breathing appears nonlabored. On inspection of the left lower extremity, there is knee immobilizer in place. The knee immobilizer is opened and reveals a moderate knee effusion. There is diffuse pain on palpation of the knee. There is no pain on palpation of the lower leg, ankle. On inspection of the left foot, there is erythema and warmth of the first MTP joint. There is severe pain on palpation of the first MTP joint. Moderate pain with passive range of motion of the first MTP joint. The patient has range of motion of the ankle. Patient has good strength and motion in the left ankle. Motor and sensory function appear to be intact of the left lower extremity. Dorsalis pedis pulse +2, left lower extremity is warm and well-perfused with brisk capillary refill distally. Calf is soft nontender to palpation. Results Computed tomography scan left knee 07/07/2019: Depressed lateral tibial plateau fracture with extension into tibial spines. - Labs Labs: Abnormal Lab Results - Last 24 Hours (Table) 07/07/19 07/07/19 07/07/19 Range/Units 12:41 12:41 19:43 Neutrophils # 7.8 H (1.3-7.7) k/uL Sodium 136 L 136 L (137-145) mmol/L Potassium 3.3 L (3.5-5.1) mmol/L Carbon Dioxide 31 H (22-30) mmol/L BUN (7-17) mg/dL Glucose 139 H 157 H (74-99) mg/dL POC Glucose (mg/dL) (75-99) mg/dL AST 39 H (14-36) U/L Total Protein 6.1 L (6.3-8.2) g/dL Albumin 3.2 L (3.5-5.0) g/dL 07/07/19 07/08/19 07/08/19 Range/Units 21:18 07:18 07:21 Neutrophils # (1.3-7.7) k/uL Sodium 136 L (137-145) mmol/L Potassium (3.5-5.1) mmol/L Carbon Dioxide (22-30) mmol/L BUN 19 H (7-17) mg/dL Glucose 119 H (74-99) mg/dL POC Glucose (mg/dL) 129 H 112 H (75-99) mg/dL AST (14-36) U/L Total Protein (6.3-8.2) g/dL Albumin (3.5-5.0) g/dL H & H 07/07/19 07/08/19 Range/Units 12:41 07:18 Hgb 13.4 12.9 (11.4-16.0) gm/dL Hct 40.4 38.3 (34.0-46.0) % Coagulation 07/07/19 Range/Units 12:41 INR 1.0 (<1.2) Result Diagrams: 07/08/19 07:18 07/08/19 07:18 Assessment and Plan Assessment: Left lateral tibial plateau fracture Acute gout flare of the left first MTP joint Plan: - Discussed the clinical and imaging findings with the patient. Nonoperative treatment is recommended at this time. The patient will be placed into a hinged knee brace that will be locked in extension. She should remain strictly nonweightbearing of the left lower extremity. - Ice and elevation of the left knee for pain and swelling control. - PT and OT for gait and balance training. - Patient's first MTP joint pain appears to be an acute gout flare. Will defer gout management to internal medicine. We will obtain an x-ray to rule out fracture due to patient's recent fall. - Medical management per internal medicine. - Social work consulted for rehab placement. Patient discussed with Dr. Gomez.
--- NOTE | 2019-07-08 10:13 | P.GSCN ---
History of Present Illness Consult date: 07/08/19 Reason for Consult: Tibial plateau fracture Requesting physician: Miller Hastings History of present illness: CHIEF COMPLAINT: Tibial plateau fracture HISTORY OF PRESENT ILLNESS: 88-year-old female presented to the emergency room after sustaining a fall at home. Patient states she was sitting in her recliner when she heard the phone ring and jumped up to answer it and fell forward. She denies loss of consciousness. Patient examined this morning at the bedside. She reports pain of the left knee and great toe. Denies pain or discomfort anywhere else. Denies abdominal pain. Tolerating diet. Denies nausea or vomiting. PAST MEDICAL HISTORY: See list. PAST SURGICAL HISTORY: See list. SOCIAL HISTORY: No illicit drug use. REVIEW OF SYSTEMS: CONSTITUTIONAL: Denies fever or chills. Reports recent fall. HEENT: Denies blurred vision, vision changes, or eye pain. Denies hemoptysis CARDIOVASCULAR: Denies chest pain or pressure. RESPIRATORY: No shortness of breath. GASTROINTESTINAL: Denies abdominal pain. Denies nausea vomiting. HEMATOLOGIC: Denies bleeding disorders. GENITOURINARY: Denies any blood in urine. SKIN: Denies pruitis. Denies rash. PHYSICAL EXAM: VITAL SIGNS: Reviewed. GENERAL: Well-developed in no acute distress. HEENT: No sclera icterus. Extraocular movements grossly intact. Moist buccal mucosa. Head is atraumatic, normocephalic. ABDOMEN: Soft. Nondistended. Nontender. NEUROLOGIC: Alert and oriented. Cranial nerves II through XII grossly intact. EXTREMITIES: Knee immobilizer to left knee noted. LABORATORY DATA: WBC 10.1. Hemoglobin 12.9. Platelet count 167. Sodium 136. Potassium 4.6. BUN 19. Creatinine 0.68. IMAGING: CT knee: Comminuted interarticular depressed fracture of the lateral tibial plateau with extension to the tibial spines. Small fracture fragment there also seen in the posterior right medial femoral condyle with associated donor site ASSESSMENT: 1. Fall 2. Left tibial plateau fracture PLAN: -Management of left tibial plateau fracture per orthopedics -Medical management per Dr. Nunez -No surgical intervention recommended from a general surgery standpoint -We will sign off. Please reconsult if needed. Nurse practitioner note has been reviewed by physician. Signing provider agrees with the documented findings, assessment, and plan of care. Past Medical History Past Medical History: Diabetes Mellitus, Hyperlipidemia, Hypertension, Osteoarthritis (OA), Thyroid Disorder Additional Past Medical History / Comment(s): NIDDM type II, neuropathy bilateral feet, bilateral leg edema with R side worse, arthritis R hip, hypothyroid, diverticular disease, constipation History of Any Multi-Drug Resistant Organisms: None Reported Past Surgical History: Cholecystectomy Additional Past Surgical History / Comment(s): Colonoscopies, bilateral cataract removals/lens implants, tongue repair Past Anesthesia/Blood Transfusion Reactions: No Reported Reaction Past Psychological History: No Psychological Hx Reported Additional Psychological History / Comment(s): Pt resides alone. She no longer drives, her wendy's take her to [employer]. She uses a walker. She is otherwise, independent. Smoking Status: Never smoker Past Alcohol Use History: None Reported Past Drug Use History: None Reported - Past Family History Father Family Medical History: Myocardial Infarction (MT) Additional Family Medical History / Comment(s): Father of a MT at the age of 39yrs. Mother Family Medical History: Cancer Additional Family Medical History / Comment(s): Mother lived to be 92yrs old. Medications and Allergies Home Medications Medication Instructions Recorded Confirmed Type Lisinopril-Hctz 10-12.5 mg 1 tab PO DAILY 09/20/13 07/07/19 History [Zestoretic 10-12.5] Simvastatin [Zocor] 20 mg PO HS 09/20/13 07/07/19 History sitaGLIPtin [Januvia] 100 mg PO DAILY 09/20/13 07/07/19 History Pyridoxine [Vitamin B-6] 100 mg PO DAILY 01/18/16 07/07/19 History Vit A/Vit C/Vit E/Zinc/Copper 1 cap PO DAILY 01/18/16 07/07/19 History [ICAPS SOFTGEL] Cyanocobalamin (Vitamin B-12) 1,000 mcg PO DAILY 08/02/16 07/07/19 History [Vitamin B-12] L.acidoph,Paracasei, B.lactis 1 cap PO DAILY 08/02/16 07/07/19 History [Probiotic] Cholecalciferol [Vitamin D3 (25 1,000 unit PO DAILY 04/13/19 07/07/19 History Mcg = 1000 Iu)] Docusate 250mg Caps 250 mg PO HS 04/13/19 07/07/19 History Levothyroxine Sodium [Synthroid] 88 mcg PO DAILY 04/13/19 07/07/19 History Apixaban [Eliquis] 5 mg PO BID #60 tab 04/15/19 07/07/19 Rx Alendronate Sodium [Fosamax] 70 mg PO LUQUE 07/07/19 07/07/19 History Allergies Allergy/AdvReac Type Severity Reaction Status Date / Time Penicillins Allergy Unknown Verified 07/07/19 12:45 Childhood Sulfa (Sulfonamide AdvReac Nausea/Vomiting/Loss Verified 07/07/19 12:45 Antibiotics) of Appetite Surgical - Exam Vital Signs Temp Pulse Resp BP Pulse Ox 98.6 F 65 20 150/105 99 07/07/19 11:27 07/07/19 11:27 07/07/19 11:27 07/07/19 11:27 07/07/19 11:27 Results - Labs 07/08/19 07:18 07/08/19 07:18 Abnormal Lab Results - Last 24 Hours (Table) 07/07/19 07/07/19 07/07/19 Range/Units 12:41 12:41 19:43 Neutrophils # 7.8 H (1.3-7.7) k/uL Sodium 136 L 136 L (137-145) mmol/L Potassium 3.3 L (3.5-5.1) mmol/L Carbon Dioxide 31 H (22-30) mmol/L BUN (7-17) mg/dL Glucose 139 H 157 H (74-99) mg/dL POC Glucose (mg/dL) (75-99) mg/dL AST 39 H (14-36) U/L Total Protein 6.1 L (6.3-8.2) g/dL Albumin 3.2 L (3.5-5.0) g/dL 07/07/19 07/08/19 07/08/19 Range/Units 21:18 07:18 07:21 Neutrophils # (1.3-7.7) k/uL Sodium 136 L (137-145) mmol/L Potassium (3.5-5.1) mmol/L Carbon Dioxide (22-30) mmol/L BUN 19 H (7-17) mg/dL Glucose 119 H (74-99) mg/dL POC Glucose (mg/dL) 129 H 112 H (75-99) mg/dL AST (14-36) U/L Total Protein (6.3-8.2) g/dL Albumin (3.5-5.0) g/dL Diabetes panel 07/07/19 07/07/19 07/08/19 Range/Units 12:41 19:43 07:18 Sodium 136 L 136 L 136 L (137-145) mmol/L Potassium 3.3 L 3.8 4.6 (3.5-5.1) mmol/L Chloride 101 100 106 (98-107) mmol/L Carbon Dioxide 27 31 H 23 (22-30) mmol/L BUN 17 17 19 H (7-17) mg/dL Creatinine 0.70 0.73 0.68 (0.52-1.04) mg/dL Glucose 139 H 157 H 119 H (74-99) mg/dL Calcium 9.1 8.7 8.7 (8.4-10.2) mg/dL AST 39 H (14-36) U/L ALT 19 (4-34) U/L Alkaline Phosphatase 84 (38-126) U/L Total Protein 6.1 L (6.3-8.2) g/dL Albumin 3.2 L (3.5-5.0) g/dL Calcium panel 07/07/19 07/07/19 07/08/19 Range/Units 12:41 19:43 07:18 Calcium 9.1 8.7 8.7 (8.4-10.2) mg/dL Albumin 3.2 L (3.5-5.0) g/dL Pituitary panel 07/07/19 07/07/19 07/08/19 Range/Units 12:41 19:43 07:18 Sodium 136 L 136 L 136 L (137-145) mmol/L Potassium 3.3 L 3.8 4.6 (3.5-5.1) mmol/L Chloride 101 100 106 (98-107) mmol/L Carbon Dioxide 27 31 H 23 (22-30) mmol/L BUN 17 17 19 H (7-17) mg/dL Creatinine 0.70 0.73 0.68 (0.52-1.04) mg/dL Glucose 139 H 157 H 119 H (74-99) mg/dL Calcium 9.1 8.7 8.7 (8.4-10.2) mg/dL Adrenal panel 07/07/19 07/07/19 07/08/19 Range/Units 12:41 19:43 07:18 Sodium 136 L 136 L 136 L (137-145) mmol/L Potassium 3.3 L 3.8 4.6 (3.5-5.1) mmol/L Chloride 101 100 106 (98-107) mmol/L Carbon Dioxide 27 31 H 23 (22-30) mmol/L BUN 17 17 19 H (7-17) mg/dL Creatinine 0.70 0.73 0.68 (0.52-1.04) mg/dL Glucose 139 H 157 H 119 H (74-99) mg/dL Calcium 9.1 8.7 8.7 (8.4-10.2) mg/dL Total Bilirubin 0.7 (0.2-1.3) mg/dL AST 39 H (14-36) U/L ALT 19 (4-34) U/L Alkaline Phosphatase 84 (38-126) U/L Total Protein 6.1 L (6.3-8.2) g/dL Albumin 3.2 L (3.5-5.0) g/dL
[2019-07-08 10:33] LABS: Appearance,Urine Clear (Clear); Bilirubin,Urine Negative (Negative); Blood,Urine Negative (Negative); Color,Urine Yellow; Glucose,Urine (UA) Negative (Negative); Ketones,Urine Negative (Negative); Leukocyte Esterase,Urine Negative (Negative); Nitrite,Urine Negative (Negative); PH, Urine 5.5 (5.0-8.0); Protein,Urine Trace (Negative); Specific Gravity,Urine 1.021 (1.001-1.035); Urobilinogen,Urine <2.0 mg/dL (<2.0)
[2019-07-08 11:45] VITALS: BMI 31.7
[2019-07-08 11:57] LABS: Glucose,Whole Blood 163 mg/dL (75-99)
[2019-07-08] MEDS: COLCHICINE 0.6 MG EACH PO SCH ×2 (14:12→20:41)
[2019-07-08 17:05] LABS: Glucose,Whole Blood 110 mg/dL (75-99)
[2019-07-08] MEDS: methylPREDNISolone SOD SUCCI 40 MG/ML 1 ML VIAL IV SCH ×2 (17:27→23:53)
[2019-07-08] MEDS: SODIUM CHLORIDE 0.9% 1,000 ML IV SCH (17:28)
[2019-07-08] MEDS: INSULIN ASPART (NovoLOG) 100 UNIT/ML VIAL SQ SCH ×2 (17:28→20:40)
[2019-07-08 20:22] LABS: Glucose,Whole Blood 204 mg/dL (75-99)
[2019-07-08] MEDS: DOCUSATE 100 MG CAP PO SCH (20:41)
[2019-07-08] MEDS: ATORVASTATIN 10 MG TAB PO SCH (20:41)
--- NOTE | 2019-07-08 21:05 | PN ---
PROGRESS NOTE DATE OF SERVICE: 07/08/2019 This 88-year-old woman who was admitted with fever, fall and severe left knee joint pain and swelling also had severe episodes of gouty attack on the left metatarsophalangeal joint, and multiple consultants are following the patient closely. Surgery has seen the patient also from the trauma standpoint. The patient is being closely monitored. PT/OT is evaluating the patient for possible ECF rehab. Past medical history reviewed. REVIEW OF SYSTEMS: CARDIOVASCULAR SYSTEM: As mentioned earlier. RESPIRATORY SYSTEM: As mentioned earlier. GI: As mentioned earlier. : No dysuria or retention. NERVOUS SYSTEM: No numbness, weakness. CURRENT MEDICATIONS: Reviewed. They include: 1. Tylenol p.r.n. 2. Truman 5 mg. 3. Lipitor. 4. Vitamin D3. 5. Vitamin B12. 6. Colace. 7. Lisinopril/hydrochlorothiazide. 8. Heparin. 9. Dilaudid. 10.NovoLog. 11.Lactobacillus. 12.Synthroid. 13.Tradjenta. 14.I Janice. 15.Narcan. 16.Protonix. 17.Vitamin B6. Doses are reviewed. PHYSICAL EXAMINATION: Patient is alert and oriented x3. Pulse is ntd, blood pressure 123/66, respiration 18, temperature 98.5, pulse ox 92% on room air. HEENT: Conjunctivae normal. NECK: No jugular venous distention. CARDIOVASCULAR SYSTEM: S1, S2 muffled. RESPIRATORY SYSTEM: Breath sounds diminished at the bases. No rhonchi. No crackles. ABDOMEN: Soft, non-tender. Obese. LEGS: Significant swelling and pain of the left knee joint, and left metatarsophalangeal joint is erythematous and tender. LAB INVESTIGATIONS: Lab investigations at this time show CBC within normal limits. Sodium 136. Glucose 112. ASSESSMENT: 1. Fall and severe left knee joint pain with swelling with comminuted intraarticular depressed fracture of the lateral tibial plateau extending into the tibial spines and multiple small fracture fragments in the posterior right medial femoral condyle with associated donor site, moderate lip as well as hemarthrosis of the left knee joint, on conservative line of treatment per Orthopedic Surgery. 2. Acute left metatarsophalangeal joint arthritis; possible acute gout. 3. Severe gait dysfunction because of the above. 4. Hyponatremia. 5. Hypokalemia. 6. Diabetes mellitus, type 2. 7. Severe pain of the foot because of the gout. 8. Hypertension. 9. Hyperlipidemia. 10.Degenerative joint disease. 11.History of hypothyroidism. 12.History of peripheral neuropathy, bilateral feet. 13.Bilateral leg edema. 14.History of degenerative joint disease. 15.History of diverticular disease. 16.History of cholecystectomy. 17.History of colonoscopy. 18.Obesity with body mass index of 31.8. 19.FULL CODE. RECOMMENDATIONS AND DISCUSSION: In this 88-year-old woman who presented with multiple complex medical issues, we will monitor the patient closely, continue the current medications, continue with symptomatic treatment. Otherwise at this time I would recommend initiating colchicine 0.6 mg twice daily as well as a short course of IV steroids. Monitor blood sugars closely. Continue the rest of the medications. PT/OT evaluation, possible ECF rehab. The patient has got significant difficulties and pain also. Pain management. I would also recommend serum uric acid estimation also. As mentioned earlier, the patient will require more than a 2-night stay. I would also strongly recommend ECF rehab because of multiple complex medical issues. Further recommendations to follow. Discussed with the patient, who understands. MMODL / IJN: [id number] / ABIGAIL
[2019-07-09] MEDS: LEVOTHYROXINE 88 MCG TAB PO SCH (05:57)
[2019-07-09 06:57] LABS: Glucose,Whole Blood 249 mg/dL (75-99)
[2019-07-09] MEDS: INSULIN ASPART (NovoLOG) 100 UNIT/ML VIAL SQ SCH ×4 (07:34→20:03)
[2019-07-09] MEDS: HEPARIN SODIUM,PORCINE 5,000 UNIT/ML 1 ML VIAL SQ SCH ×2 (07:35→20:05)
[2019-07-09] MEDS: CYANOCOBALAMIN 500 MCG TAB PO SCH (07:35)
[2019-07-09] MEDS: methylPREDNISolone SOD SUCCI 40 MG/ML 1 ML VIAL IV SCH ×2 (07:35→16:55)
[2019-07-09] MEDS: LACTOBACILLUS ACIDOPH & BULGAR 1 EACH PACKET PO SCH (07:35)
[2019-07-09] MEDS: PYRIDOXINE 50 MG TAB PO SCH (07:36)
[2019-07-09] MEDS: LINAGLIPTIN 5 MG TABLET PO SCH (07:36)
[2019-07-09] MEDS: LISINOPRIL-HCTZ 10-12.5 MG 1 EACH TAB PO SCH (07:36)
[2019-07-09] MEDS: VIT A,C & E-LUTEIN-MINERALS 1 EACH TAB PO SCH (07:36)
[2019-07-09] MEDS: COLCHICINE 0.6 MG EACH PO SCH ×2 (07:36→20:05)
[2019-07-09] MEDS: CHOLECALCIFEROL 1,000 UNIT TAB PO SCH (07:36)
[2019-07-09] MEDS: PANTOPRAZOLE 40 MG TABLET PO SCH (07:36)
--- NOTE | 2019-07-09 08:55 | P.PN ---
Subjective Progress Note Date: 07/09/19 Principal diagnosis: Lateral tibial plateau fracture left knee. Multiple medical comorbidities. This patient is an 88-year-old female with past medical history of diabetes, hypertension, hyperlipidemia that presented to [facility] ER yesterday with complaints of inability to ambulate. The patient experienced a fall last Saturday06/29/19 when she fell out of her chair at home. She was experiencing severe left knee pain, and was brought to [facility] ER the same day on 06/29/19, where x-rays were taken of the left knee and the patient was told she did not sustain a fracture. She continued to experience severe left knee pain and was unable to ambulate due to the pain, therefore she was seen by Dr. Gomez on an outpatient basis on 07/03/2019. Computed tomography scan of the left knee was ordered due to the patient's severe pain with unremarkable x-rays, patient was instructed to remain nonweightbearing on the left lower extremity. The patient presented to [facility] yesterday to undergo computed tomography scan, although the family brought the patient to the ER following the computed tomography scan as they have been unable to take care of the patient and due to her nonweightbearing status. The patient was admitted for placement, under the care Dr. Gomez with consults placed to internal medicine for medical management. Today she has no new complaints or concerns. She is stable from an orthopedic standpoint. She is awaiting transfer to inpatient rehab. Vital signs are stable. Objective - Vital Signs Vital signs: Vital Signs Temp 98.1 F 07/09/19 01:50 Pulse 63 07/09/19 01:50 Resp 17 07/09/19 01:50 BP 122/70 07/09/19 01:50 Pulse Ox 92 L 07/09/19 01:50 Intake & Output 07/08/19 07/09/19 07/09/19 18:59 06:59 18:59 Intake Total 20 Balance 20 Weight 94.801 kg Intake: Oral 20 Other: Voiding Method Bedpan # Voids 1 1 - Exam This is a pleasant 88-year-old female in no acute distress. She is alert and oriented at this time. Exam of the lower extremities reveals a knee immobilizer in place to the left knee. She has full foot and ankle motion without diffic ulty or pain. Her gout pain is improving. Neurovascular status to the lower extremity is intact. Pedal pulses +1/4. - Labs CBC & Chem 7: 07/08/19 07:18 07/08/19 07:18 Labs: Abnormal Lab Results - Last 24 Hours (Table) 07/08/19 07/08/19 07/08/19 Range/Units 09:00 11:54 17:02 POC Glucose (mg/dL) 163 H 110 H (75-99) mg/dL Urine Protein Trace H (Negative) 07/08/19 07/09/19 Range/Units 20:19 06:55 POC Glucose (mg/dL) 204 H 249 H (75-99) mg/dL Urine Protein (Negative) Assessment and Plan (1) Tibial plateau fracture Current Visit: Yes Status: Acute Code(s): S82.143A - DISPLACED BICONDYLAR FRACTURE OF UNSP TIBIA, INIT SNOMED Code(s): 898579408 (2) Atrial fibrillation with RVR Current Visit: No Status: Acute Code(s): I48.91 - UNSPECIFIED ATRIAL FIBRILLATION SNOMED Code(s): 660662504501743 (3) Fall Current Visit: No Status: Acute Code(s): W19.XXXA - UNSPECIFIED FALL, INITIAL ENCOUNTER SNOMED Code(s): 3849300 Plan: The clinical findings are discussed with the patient. We're waiting transfer to inpatient rehab. She is nonweightbearing to the left lower extremity with walker. She is awaiting placement of a different brace to the left knee. Until then she is to continue the knee immobilizer.
[2019-07-09 09:38] LABS: Basophils % (A) 0 %; Eosinophils % (A) 1 %; HCT 37.9 % (34.0-46.0); HGB 12.9 gm/dL (11.4-16.0); Lymphocytes # (A) 0.8 k/uL (1.0-4.8); Lymphocytes % (A) 11 %; MCH 31.3 pg (25.0-35.0); Mean Platelet Volume 8.5; Monocytes # (A) 0.1 k/uL (0-1.0); Monocytes % (A) 1 %; Neutrophils # (A) 5.9 k/uL (1.3-7.7); Neutrophils % (A) 87 %; Platelet Count 194 k/uL (150-450); RBC 4.11 m/uL (3.80-5.40); RDW 12.5 % (11.5-15.5); WBC 6.8 k/uL (3.8-10.6)
[2019-07-09 09:40] LABS: African American GFR (CKD) >90 (>60 ml/min/1.73 sqM); Anion Gap 9 mmol/L; Blood Urea Nitrogen 20 mg/dL (7-17); Calcium 8.6 mg/dL (8.4-10.2); Carbon Dioxide 24 mmol/L (22-30); Chloride 103 mmol/L (98-107); Glucose 238 mg/dL (74-99); Non-African American GFR(CKD) 81 (>60 ml/min/1.73 sqM); Potassium 3.9 mmol/L (3.5-5.1); Sodium 136 mmol/L (137-145)
[2019-07-09 11:51] LABS: Glucose,Whole Blood 186 mg/dL (75-99)
[2019-07-09] MEDS: SODIUM CHLORIDE 0.9% 1,000 ML IV SCH (12:18)
[2019-07-09] MEDS: predniSONE 20 MG TAB PO SCH (16:54)
[2019-07-09] MEDS: HYDROcodone/APAP 5-325MG 1 EACH TAB PO PRN (16:56)
[2019-07-09 16:57] LABS: Glucose,Whole Blood 201 mg/dL (75-99)
--- NOTE | 2019-07-09 18:34 | PN ---
PROGRESS NOTE DATE OF SERVICE: 07/09/2019 This 88-year-old woman who was admitted after a fall and significant abnormalities of the left knee is complaining of severe pain. Patient also had acute gouty attack on the left metatarsophalangeal joint. The patient was started on colchicine, steroids. Patient is improving significantly. A serum uric acid was requested yesterday which was found to be only 5.1. The patient is being closely monitored. Past medical history reviewed. REVIEW OF SYSTEMS: CARDIOVASCULAR SYSTEM: No angina, palpitations. RESPIRATORY SYSTEM: As mentioned earlier. GI: No nausea, vomiting. : No dysuria or retention. NERVOUS SYSTEM: No numbness, weakness. MUSCULOSKELETAL: As mentioned earlier. CURRENT MEDICATIONS: Reviewed. They include: 1. Tylenol p.r.n. 2. [place] 5 mg q.6 p.r.n. 3. Xanax 0.25 t.i.d. 4. Lipitor 10 mg at bedtime. 5. Vitamin D3 1000 daily. 6. Colcrys 0.6 mg p.o. b.i.d. 7. Vitamin B12 1000 mcg p.o. daily. 8. Colace 200 mg at bedtime. 9. Zestoretic 10/12.5 mg p.o. daily. 10.Heparin 5000 units subcutaneously b.i.d. 11.Dilaudid. 12.NovoLog scale. 13.Lactinex. 14.Synthroid 88 mcg p.o. daily. 15.Tradjenta 5 mg p.o. daily. 16.Zofran. 17.Protonix. 18.Vitamin B6. PHYSICAL EXAMINATION: Patient alert and oriented x3. Pulse is 61, blood pressure 149/59, respiration 18, temperature 97.7, pulse ox 96% on room air. HEENT: Conjunctivae normal. Oral mucosa moist. NECK: No jugular venous distention. No carotid bruit. No lymph node enlargement. CARDIOVASCULAR SYSTEM: S1, S2 muffled. RESPIRATORY SYSTEM: Breath sounds diminished at the bases. No rhonchi. No crackles. ABDOMEN: Soft, non-tender. LEGS: Significant pain and swelling of the left knee joint in the metatarsophalangeal joint. Tender and hypersensitive, also. LAB INVESTIGATIONS: CBC within normal limits. Sodium 136, glucose 238. ASSESSMENT: 1. Fall and severe left knee joint pain and swelling with comminuted intraarticular depressed fracture of the lateral tibial plateau extending into the tibial spine, and multiple small fracture fragments in the posterior right medial femoral condyle with associated donor site as well as moderate lipohemarthrosis of the left knee joint, on conservative line of treatment per Orthopedic Surgery. 2. Acute left metatarsophalangeal joint arthritis, possible acute gout. 3. Severe gait dysfunction because of the above. 4. Hyponatremia. 5. Hypokalemia. 6. Diabetes mellitus, type 2. 7. Severe pain of the foot because of gout. 8. Hypertension. 9. Hyperlipidemia. 10.History of degenerative joint disease. 11.History of hypothyroidism. 12.History of peripheral neuropathy, bilateral feet. 13.History of edema. 14.History of diverticular disease. 15.History of cholecystectomy. 16.History of colonoscopy. 17.Obesity with body mass index of 31.8. 18.FULL CODE. RECOMMENDATIONS AND DISCUSSION: In this 88-year-old woman who presented with multiple complex medical issues, we will monitor the patient closely, continue the current medications, continue with symptomatic treatment, continue with colchicine. Serum uric acid is normal. Otherwise, I would recommend continuing with the pain medications and a short course of steroids as recommended. We will continue to monitor. I would recommend a short course of p.o. steroids as well. Further recommendations to follow. MMODL / IJN: [id number] /
[2019-07-09 20:00] LABS: Glucose,Whole Blood 238 mg/dL (75-99)
[2019-07-09] MEDS: ATORVASTATIN 10 MG TAB PO SCH (20:05)
[2019-07-09] MEDS: DOCUSATE 100 MG CAP PO SCH (20:06)
[2019-07-10] MEDS: LEVOTHYROXINE 88 MCG TAB PO SCH (05:28)
[2019-07-10 07:04] LABS: Glucose,Whole Blood 160 mg/dL (75-99)
[2019-07-10] MEDS: CHOLECALCIFEROL 1,000 UNIT TAB PO SCH (07:19)
[2019-07-10] MEDS: CYANOCOBALAMIN 500 MCG TAB PO SCH (07:19)
[2019-07-10] MEDS: predniSONE 20 MG TAB PO SCH (07:19)
[2019-07-10] MEDS: PANTOPRAZOLE 40 MG TABLET PO SCH (07:19)
[2019-07-10] MEDS: LACTOBACILLUS ACIDOPH & BULGAR 1 EACH PACKET PO SCH (07:19)
[2019-07-10] MEDS: HEPARIN SODIUM,PORCINE 5,000 UNIT/ML 1 ML VIAL SQ SCH (07:20)
[2019-07-10] MEDS: INSULIN ASPART (NovoLOG) 100 UNIT/ML VIAL SQ SCH ×2 (07:20→11:51)
[2019-07-10] MEDS: LINAGLIPTIN 5 MG TABLET PO SCH (07:20)
[2019-07-10] MEDS: COLCHICINE 0.6 MG EACH PO SCH (07:20)
[2019-07-10] MEDS: LISINOPRIL-HCTZ 10-12.5 MG 1 EACH TAB PO SCH (07:21)
[2019-07-10] MEDS: PYRIDOXINE 50 MG TAB PO SCH (07:21)
[2019-07-10] MEDS: VIT A,C & E-LUTEIN-MINERALS 1 EACH TAB PO SCH (07:21)
[2019-07-10 09:20] VITALS: BP 154/72; RESP 18; TEMP 97.8
[2019-07-10 10:13] LABS: Basophils % (A) 0 %; Eosinophils # (A) 0.1 k/uL (0-0.7); Eosinophils % (A) 1 %; HCT 39.9 % (34.0-46.0); HGB 13.3 gm/dL (11.4-16.0); Lymphocytes # (A) 1.2 k/uL (1.0-4.8); Lymphocytes % (A) 9 %; MCH 30.6 pg (25.0-35.0); MCHC 33.3 g/dL (31.0-37.0); MCV 91.9 fL (80.0-100.0); Mean Platelet Volume 8.8; Monocytes # (A) 0.8 k/uL (0-1.0); Monocytes % (A) 6 %; Neutrophils # (A) 11.6 k/uL (1.3-7.7); Neutrophils % (A) 85 %; Platelet Count 190 k/uL (150-450); RBC 4.35 m/uL (3.80-5.40); RDW 12.7 % (11.5-15.5); WBC 13.8 k/uL (3.8-10.6)
[2019-07-10 11:14] VITALS: PULSE 60
[2019-07-10 11:44] LABS: Glucose,Whole Blood 145 mg/dL (75-99)
[2019-07-10 13:16] LABS: Calcium 9.4 mg/dL (8.4-10.2); Potassium 3.8 mmol/L (3.5-5.1)
--- NOTE | 2019-07-10 15:19 | P.DS ---
Providers Date of admission: 07/07/19 12:49 Expected date of discharge: 07/10/19 Attending physician: Arden Gomez Consults: 07/07/19 12:54 Consult Physician Routine Consulting Provider: Gómez Nunez Consult Reason/Comments: medical consult Do you want consulting provider notified?: Yes Primary care physician: Tabitha Osmin [facility] Course: This patient is an 88-year-old female past medical history of diabetes, hypertension, hyperlipidemia that presented to [facility] ER on 07/07/19 with complaints of inability to ambulate. The patient was originally seen in the office by Dr. Gomez on 07/03/19 with complaints of severe left knee pain following a fall the week prior. Her x-rays were unremarkable, therefore the patient was sent for a computed tomography scan of the left knee, which revealed a lateral tibial plateau fracture. The patient is brought to the ER on 07/07/19 for ECF placement. The patient was admitted under the care of Dr. Gomez for placement to an extended care facility, with a consult placed to internal medicine for medical management. Nonoperative treatment was recommended for the left lateral tibial plateau fracture. Patient is examined bedside this morning. She states the pain in her left knee is currently well-controlled. She states she has been working physical therapy and this is going well. She has been remaining strictly nonweightbearing on the left lower extremity. She has not yet obtained her hinged knee brace, she is currently in a knee immobilizer. Patient states that the pain in her left first MTP joint has significantly improved with treatment with steroids per internal medicine. Overall the patient is feeling well today. Patient denies any new complaints today. Denies chest pain, shortness breath, nausea, vomiting, fevers, chills. Vital signs stable. On examination, the patient is sitting up in bed in no apparent distress. She is alert and oriented 3. On inspection of the left lower extremity, there is a knee immobilizer in place. The left first MTP joint is resolving erythema, there is minimal tenderness on palpation of the first MTP joint. The left lower extremity is warm and well-perfused with brisk capillary refill distally. Dorsalis pedis pulse +2. Patient has good strength and range of motion of her left ankle. Motor and sensory function appear intact of the left lower extremity. Calf is soft and nontender to palpation. The patient is discharged to rehab, pending medical clearance in good condition. Please see discharge orders. Please refer to the [facility] for accurate list of medications. Patient Condition at Discharge: Fair Plan - Discharge Summary New Discharge Prescriptions: New Hydrocodone/Acetaminophen [[place] 5-325] 1 tab PO Q6H PRN #28 tab PRN Reason: Pain No Action sitaGLIPtin [Januvia] 100 mg PO DAILY Simvastatin [Zocor] 20 mg PO HS Lisinopril-Hctz 10-12.5 mg [Zestoretic 10-12.5] 1 tab PO DAILY Pyridoxine [Vitamin B-6] 100 mg PO DAILY Vit A/Vit C/Vit E/Zinc/Copper [ICAPS SOFTGEL] 1 cap PO DAILY Cyanocobalamin (Vitamin B-12) [Vitamin B-12] 1,000 mcg PO DAILY L.acidoph,Paracasei, B.lactis [Probiotic] 1 cap PO DAILY Levothyroxine Sodium [Synthroid] 88 mcg PO DAILY Cholecalciferol [Vitamin D3 (25 Mcg = 1000 Iu)] 1,000 unit PO DAILY Docusate 250mg Caps 250 mg PO HS Apixaban [Eliquis] 5 mg PO BID #60 tab Alendronate Sodium [Fosamax] 70 mg PO LUQUE Discharge Medication List Lisinopril-Hctz 10-12.5 mg [Zestoretic 10-12.5] 1 tab PO DAILY 09/20/13 [History] Simvastatin [Zocor] 20 mg PO HS 09/20/13 [History] sitaGLIPtin [Januvia] 100 mg PO DAILY 09/20/13 [History] Pyridoxine [Vitamin B-6] 100 mg PO DAILY 01/18/16 [History] Vit A/Vit C/Vit E/Zinc/Copper [ICAPS SOFTGEL] 1 cap PO DAILY 01/18/16 [History] Cyanocobalamin (Vitamin B-12) [Vitamin B-12] 1,000 mcg PO DAILY 08/02/16 [ History] L.acidoph,Paracasei, B.lactis [Probiotic] 1 cap PO DAILY 08/02/16 [History] Cholecalciferol [Vitamin D3 (25 Mcg = 1000 Iu)] 1,000 unit PO DAILY 04/13/19 [History] Docusate 250mg Caps 250 mg PO HS 04/13/19 [History] Levothyroxine Sodium [Synthroid] 88 mcg PO DAILY 04/13/19 [History] Apixaban [Eliquis] 5 mg PO BID #60 tab 04/15/19 [Rx] Alendronate Sodium [Fosamax] 70 mg PO LUQUE 07/07/19 [History] Hydrocodone/Acetaminophen [[place] 5-325] 1 tab PO Q6H PRN #28 tab 07/10/19 [Rx] Follow up Appointment(s)/Referral(s): IsaacLosherley knutson Ashton, [NON-STAFF] - As Needed Tabitha Solorio MD [Primary Care Provider] - 1-2 days Arden Gomez MD [Medical Doctor] - 07/17/19 10:30 am Liv Barrera [NON-STAFF] - As Needed (hinged knee brace) Activity/Diet/Wound Care/Special Instructions: Strict nonweightbearing on left lower extremity. Keep hinged knee brace on at all times, keep locked in extension. Use a walker for ambulation. Follow-up with Dr. Gomez in the office in 1 week for repeat x-rays of the left knee. Discharge Disposition: TRANSFER TO SNF/ECF
[2019-07-10] MEDS: HYDROcodone/APAP 5-325MG 1 EACH TAB PO PRN (16:55)
--- NOTE | 2019-07-10 22:21 | PN ---
PROGRESS NOTE DATE OF SERVICE: 07/10/2019 This 88-year-old woman who was admitted with significant difficulties of the knee joint injured after a fall, is on conservative line of management. Patient also had acute gout of the metatarsophalangeal joint on the left foot also. The patient is on a short course of steroids and colchicine with significant relief. Still there is some redness and erythema, exam is pending at this time. The orthopedic Surgeon evaluated the patient and recommended possible ECF rehab. Patient closely monitored. No chest pain. No palpitations. PAST MEDICAL HISTORY: Reviewed. REVIEW OF SYSTEMS: Cardiovascular: No angina or palpitations. Respirations: As mentioned earlier. GI as mentioned earlier. : No dysuria. CENTRAL NERVOUS SYSTEM: No numbness or weakness. CURRENT MEDICATIONS: Reviewed and include: 1. Tylenol p.r.n. 2. [place]. 3. Xanax. 4. Lipitor. 5. Vitamin D3. 6. Colcrys. 7. Vitamin B12. 8. Colace. 9. Zestoretic. 10.Heparin. 11.Dilaudid. 12.Tradjenta. 13.I-Janice. 14.Prednisone. PHYSICAL EXAM: Patient is alert, oriented x3. Pulse is 59. Blood pressure 150/70. Respiration 18, temperature 97.2, pulse ox 92% on room air. HEENT: Conjunctivae normal. NECK: No JVD. CARDIOVASCULAR: S1, S2 muffled. RESPIRATORY: Breath sounds diminished in the bases. No rhonchi. No crackles. ABDOMEN: Soft. Left side significant pain and swelling of the muscle joint and erythema and tenderness in the left metatarsophalangeal and the signal intensity previously as mentioned earlier. NERVOUS SYSTEM: No focal deficits. SKIN: As mentioned earlier. JOINTS as mentioned earlier. LAB STUDIES: WBC 13.2, hemoglobin 13.3, sodium 140, potassium 3.8. ASSESSMENT: 1. Fall and severe left knee pain and swelling with continued intra-articular depressed fracture of the lateral tibial plateau extending at the base: Multiple small fracture fragments in the posterior right mid femoral condyle with associated onset as well as moderate slip and hemarthrosis of the left knee joint on conservative line of treatment. 2. Acute left metatarsal phalangeal joint arthritis, left foot possible acute gout. 3. Severe gait dysfunction because of above. 4. Hyponatremia. 5. Hypokalemia. 6. Diabetes mellitus type 2. 7. Severe pain of the foot because of gout. 8. Hypertension. 9. Hyperlipidemia. 10.History of degenerative joint disease. 11.History of hypothyroidism. 12.History of peripheral neuropathy bilaterally. 13.History of edema. 14.History of diverticular disease. 15.History of cholecystectomy. 16.History of colonoscopy. 17.Obesity with body mass index of 31.8. 18.FULL CODE. RECOMMENDATIONS AND DISCUSSION: Recommend to continue current medications, continue to monitor. Symptomatic treatment. Otherwise at this time I would recommend continue with colchicine 0.6 mg twice daily for another 3 days, and then 0.6 mg daily. Otherwise a tapering course of steroids 40 mg daily for 3 days, prednisone 50 mg p.o. daily for 3 days, 30 for 3 days, 20 for 3 days 10 for 3 days. At this time recommend close followup with the primary physician in the outpatient setting. Otherwise, rest of the recommendations per orthopedic surgery. Further recommendations to follow. MMODL / IJN: [id number] /
[2019-07-12] MEDS ORDERED: NON FORMULARY DRUG (Alendronate Sodium [Fosamax] 70 MG) PO SCH (19:05)
--- NOTE | 2019-07-15 14:58 | CDI ---
Documentation Clarification Form Date: 07/15/19 From: Aleyda Pires CCS Phone: If you have a question about this query, please contact Isamar Murrell, Sample [employer]er at [phone] between 8am and 5pm. Admit Date: 07/07/19 Discharge Date: 07/10/19 Patient Name: Diana Scales Visit Number: [id number] ATTENTION: The Clinical Documentation Specialists (CDI) and [facility] Coding Staff appreciate your assistance in clarifying documentation. Please respond to the clarification below the line at the bottom and electronically sign. The CDI & [facility] Coding staff will review the response and follow-up if needed. Please note: Queries are made part of the Legal Health Record. If you have any questions, please contact the author of this message via ITS. Dear Dr. 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 Chronic/Permanent Paroxysmal Persistent Other, please specify Unable to determine I don't diagnose, manage or treat atrial fibrillation. I would ask the strategic communications manager or toe laster that saw this patient to clarify. CATHYD
--- NOTE | 2019-07-21 13:28 | CDI ---
Documentation Clarification Form Date: 07/21/19 From: Aleyda Pires CCS Phone: If you have a question about this query, please contact Isamar Murrell, [employer] Managed Service Sales Exec at [phone] between 8am and 5pm. Admit Date: 07/07/19 Discharge Date: 07/10/19 Patient Name: Diana Scales Visit Number: [id number] ATTENTION: The Clinical Documentation Specialists (CDI) and [facility] Coding Staff appreciate your assistance in clarifying documentation. Please respond to the clarification below the line at the bottom and electronically sign. The CDI & [facility] Coding staff will review the response and follow-up if needed. Please note: Queries are made part of the Legal Health Record. If you have any questions, please contact the author of this message via ITS. Dear Dr. 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 Chronic/Permanent Paroxysmal Persistent Other, please specify Unable to determine Paroxysmal MTDD
== END 2019-07-10 17:41 | DRG 563 ==
LOC: EC 11:24 → 6NMEDSUR 12:49 → 4SSUR 14:34
PROVIDERS: ADMIT Orthopaedic Surgery; ATTEND Orthopaedic Surgery
DX: S82.142A Displaced bicondylar fracture of left tibia, initial encounter for closed fracture (principal); M25.062 Hemarthrosis, left knee; E87.1 Hypo-osmolality and hyponatremia; E11.42 Type 2 diabetes mellitus with diabetic polyneuropathy; I10 Essential (primary) hypertension; E78.5 Hyperlipidemia, unspecified; E03.9 Hypothyroidism, unspecified; M16.11 Unilateral primary osteoarthritis, right hip; M10.9 Gout, unspecified; E66.9 Obesity, unspecified; E87.6 Hypokalemia; K57.90 Diverticulosis of intestine, part unspecified, without perforation or abscess without bleeding; I48.0 Paroxysmal atrial fibrillation; M19.072 Primary osteoarthritis, left ankle and foot; W07.XXXA Fall from chair, initial encounter; Z68.31 Body mass index [BMI] 31.0-31.9, adult; Z79.84 Long term (current) use of oral hypoglycemic drugs; Z79.83 Long term (current) use of bisphosphonates; Z79.890 Hormone replacement therapy; Z79.01 Long term (current) use of anticoagulants; Z79.899 Other long term (current) drug therapy; Z90.49 Acquired absence of other specified parts of digestive tract; Z87.19 Personal history of other diseases of the digestive system; Z98.42 Cataract extraction status, left eye; Z98.41 Cataract extraction status, right eye; Z96.1 Presence of intraocular lens; Z98.890 Other specified postprocedural states; Z88.0 Allergy status to penicillin; Z88.2 Allergy status to sulfonamides; Z82.49 Family history of ischemic heart disease and other diseases of the circulatory system; Z80.9 Family history of malignant neoplasm, unspecified
CPT/HCPCS: 36415; 71045; 80048; 80053; 81003; 84550; 85025; 85610; 85730; 93005; 96374; 99285

== ENCOUNTER 2021-06-23 13:51 | Emergency (ER) | payer MEDICARE, OTHER ==
[2021-06-23 14:01] VITALS: BP 99/41; PULSE 60; RESP 16; TEMP 97.5
--- NOTE | 2021-06-23 15:24 | CT ---
EXAMINATION TYPE: CT brain cspine wo con DATE OF EXAM: 06/23/2021 COMPARISON: CT dated 05/17/2021 HISTORY: Fall, potential head injury. CT DLP: 1350 mGycm Automated exposure control for dose reduction was used. TECHNIQUE: CT scan of the head and cervical spine are performed without contrast. FINDINGS: Brain: Brain volume loss changes, likely age-related. Bilateral cerebral white matter hypodensities likely r epresenting chronic microvascular ischemic changes. Scattered arterial atherosclerotic calcifications . No acute intracranial hemorrhage or gross acute cortical infarct. No midline shift or herniation. Unr emarkable basal cisterns, sella and CP angles. No gross space-occupying lesion, vasogenic edema or ma ss effect. No gross orbital abnormality. Clear paranasal sinuses and right mastoid air cells. Minimal opacificat ion of the left posterior mastoid air cells. Degenerative changes of the left TMJ. Osteopenia. No def inite acute calvarial bone fracture identified. Cervical spine: Osteopenia. Mild anterolisthesis C5 over C6 and C6 over C7 as well as C7 over T1, likely degenerative . No definite vertebral body collapse or acute displaced fracture. Unremarkable atlantoaxial and atla ntooccipital articulations. No facet dislocation or significant subluxation. Advanced degenerative changes of the cervical spine. Mild C2-3, moderate left C3-4, severe bilateral C4-5, severe bilateral C5-6 and mild bilateral C6-7 neural foraminal stenosis. Multilevel spinal naga l stenosis most evident at C4-5 level. Bilateral thyroid hypodensities, for correlation with thyroid ultrasound results. No paraspinal lesio n. IMPRESSION: 1. No acute intracranial posttraumatic sequela or acute calvarial bone fracture. 2. No evidence of acute traumatic bony injury of the cervical spine. 3. Advanced degenerative changes of the cervical spine with other incidental findings and recommendat ion as detailed above.
--- NOTE | 2021-06-23 15:38 | ED ---
Fall HPI - General Chief Complaint: Fall Stated Complaint: Fall Time Seen by Provider: 06/23/21 13:55 Source: patient, EMS Mode of arrival: EMS - History of Present Illness Initial Comments: Patient is an 89-year-old female presenting for evaluation after a fall at home. PMH of hypertension, T2DM, and hyperlipidemia. She states that her walker got caught on the carpet, which caused her to fall backwards and land on her L hip. She may have hit her head during the fall. She is on Eliquis. She is complaining mainly of left hip and knee pain. Denies any presyncopal symptoms. Denies chest pain, shortness of breath, lightheadedness, headache, nausea, vomiting. Constitutional: Denies fever, chills, MC[place] HEENT: Denies congestion, sore throat, sinus pain, vision changes, eye pain Cardiovascular: Denies chest pain, shortness of breath, palpitations Respiratory: Denies SOB, hemoptysis, cough, history of PE GI: Denies nausea, vomiting, diarrhea, constipation, abdominal pain, hematemesis : Denies dysuria, urgency, frequency, hematuria, flank pain MSK: Denies loss of ROM. Admits to hip pain, knee pain Neuro: Denies dizziness, headache, numbness, tingling, weakness, neck stiffness Integument: Denies rash, pruritus, history of similar rash, exposure to allergen - Related Data Home Medications Medication Instructions Recorded Confirmed Simvastatin [Zocor] 20 mg PO HS 09/20/13 06/23/21 Pyridoxine [Vitamin B-6] 100 mg PO DAILY 01/18/16 06/23/21 Vit A/Vit C/Vit E/Zinc/Copper 1 cap PO DAILY 01/18/16 06/23/21 [ICAPS SOFTGEL] Cyanocobalamin (Vitamin B-12) 1,000 mcg PO DAILY 08/02/16 06/23/21 [Vitamin B-12] L.acidoph,Paracasei, B.lactis 1 cap PO DAILY 08/02/16 06/23/21 [Probiotic] Levothyroxine Sodium [Synthroid] 88 mcg PO DAILY 04/13/19 06/23/21 Alendronate Sodium [Fosamax] 70 mg PO LUQUE 07/07/19 06/23/21 Cholecalciferol [Vitamin D3 (25 25 mcg PO DAILY 05/17/21 06/23/21 Mcg = 1000 Iu)] Potassium Chloride ER [K-Dur 20] 20 meq PO DAILY 05/17/21 06/23/21 Torsemide [Demadex] 10 mg PO DAILY 05/17/21 06/23/21 HYDROcodone/APAP 5-325MG [[place] 1 - 2 tab PO Q6H PRN 06/23/21 06/23/21 5-325] Metoprolol Tartrate [Lopressor] 12.5 mg PO BID 06/23/21 06/23/21 sitaGLIPtin [Januvia] 50 mg PO DAILY 06/23/21 06/23/21 Previous Rx's Medication Instructions Recorded Apixaban [Eliquis] 5 mg PO BID #60 tab 04/15/19 Pantoprazole [Protonix] 40 mg PO AC-BRKFST 30 Days #30 07/10/19 tablet. Lisinopril [Prinivil] 5 mg PO HS #0 05/24/21 Sennosides-Docusate Sodium 1 tab PO BID #60 tablet 05/24/21 [Senokot-S] Lidocaine 5% Patch [Lidoderm 5% 1 patch TOPICAL DAILY PRN #1 packet 06/23/21 Patch] Allergies Allergy/AdvReac Type Severity Reaction Status Date / Time Penicillins Allergy Unknown Verified 06/23/21 16:56 Childhood Sulfa (Sulfonamide AdvReac Nausea/Vomiting/Loss Verified 06/23/21 16:56 Antibiotics) of Appetite Review of Systems ROS Statement: Those systems with pertinent positive or pertinent negative responses have been documented in the HPI. ROS Other: All systems not noted in ROS Statement are negative. Past Medical History Past Medical History: Diabetes Mellitus, Hyperlipidemia, Hypertension, Osteoarthritis (OA), Thyroid Disorder Additional Past Medical History / Comment(s): NIDDM type II, neuropathy bilateral feet, bilateral leg edema with R side worse, arthritis R hip, hypothyroid, diverticular disease, constipation History of Any Multi-Drug Resistant Organisms: None Reported Past Surgical History: Cholecystectomy Additional Past Surgical History / Comment(s): Colonoscopies, bilateral cataract removals/lens implants, tongue repair Past Anesthesia/Blood Transfusion Reactions: No Reported Reaction Past Psychological History: No Psychological Hx Reported Smoking Status: Never smoker Past Alcohol Use History: None Reported Past Drug Use History: None Reported - Past Family History Father Family Medical History: Myocardial Infarction (NE) Additional Family Medical History / Comment(s): Father of a NE at the age of 39yrs. Mother Family Medical History: Cancer Additional Family Medical History / Comment(s): Mother lived to be 92yrs old. General Exam Limitations: physical limitation General appearance: alert, other (pt is in C collar and L leg brace) Head exam: Present: atraumatic, normocephalic, normal inspection Eye exam: Present: normal appearance, PERRL, EOMI. Absent: scleral icterus Neck exam: Present: normal inspection Respiratory exam: Present: normal lung sounds bilaterally. Absent: respiratory distress, wheezes, rales, rhonchi, stridor Cardiovascular Exam: Present: regular rate, normal rhythm, normal heart sounds. Absent: systolic murmur, diastolic murmur, rubs, gallop, clicks Extremities exam: Present: other (exam is limited due to brace and age/mobility limitations) Left Hip exam: Present: tenderness (limited exam due to mobiloty limitations) Knee exam: Absent: tenderness (limited exam due to mobiloty limitationslimited exam due to mobiloty limitations) Gait: not tested/not observed Neurological exam: Present: alert, oriented X3, CN II-XII intact Psychiatric exam: Present: normal affect, normal mood Skin exam: Present: warm, dry, intact, normal color. Absent: rash Course Vital Signs 06/23/21 13:53 Temperature 97.5 F L Pulse Rate 60 Respiratory 16 Rate Blood Pressure 99/41 O2 Sat by Pulse 96 Oximetry Medical Decision Making - Medical Decision Making Patient is an 89-year-old female presenting for evaluation post mechanical fall. She fell backwards onto her left hip and is complaining of hip and knee pain. She denied any headache, chest pain, shortness of breath, dizziness, lightheadedness, dictations. She is on Eliquis and cannot confirm with 100% certainty that she did not hit her head. CT of the head and neck without contrast shows no acute processes. X-ray of the left hip and left knee shows arthritic changes and a previous tibial plateau fracture. Patient states that her knee pain is minimal and she was able to stand and walk in the room. Patient is adamant about going home today. She is prescribed pain control with lidocaine patches, she refused Motrin. I educated her and her daughter on fall prevention and safety. Continue to follow up with orthopedics. Return to the ER with any worsening or new onset symptoms. Answered all questions. Patient and daughter conveyed verbal understanding and agreed to the plan. Dr. Bryant is the attending. - Radiology Data Radiology results: report reviewed Previous tibial plateau fracture is seen on knee x-ray, no acute/new fracture or dislocation. Hip x-ray shows arthritic changes and no acute fracture or dislocation. Disposition Clinical Impression: Fall, Hip pain, acute Disposition: HOME SELF-CARE Condition: Good Instructions (If sedation given, give patient instructions): Fall Prevention for Older Adults (ED), Fall Prevention (ED), Hip Pain (ED) Additional Instructions: Continue to follow up with orthopedics for previous tibial plateau fracture. Return to ER with any worsening or new onset symptoms. Prescriptions: Lidocaine 5% Patch [Lidoderm 5% Patch] 1 patch TOPICAL DAILY PRN #1 packet PRN Reason: Pain Is patient prescribed a controlled substance at d/c from ED?: No Referrals: Joseph Avila MD [Primary Care Provider] - 1-2 days Time of Disposition: 18:28
--- NOTE | 2021-06-23 17:47 | XR ---
EXAMINATION TYPE: XR knee complete LT DATE OF EXAM: 06/23/2021 COMPARISON: 06/29/2019 HISTORY: 89 years Female. STUDY INDICATION GIVEN: fall, knee pain . TECHNIQUE: 3 views of the right knee IMPRESSION: Generalized osteopenia. Irregularity of the lateral tibial plateau concerning for depression fracture. Inferiorly oriented screws in the patella noted. Irregularity of the upper pole of the patella concer fidencio for patellar nondisplaced comminuted fracture. Moderate size knee joint effusion. Arthritic changes of the knee joint. Posterior knee joint fabella versus loose bodies. Soft tissue swelling around the knee joint.
--- NOTE | 2021-06-23 17:53 | XR ---
EXAMINATION TYPE: XR Hip LT and AP Pelvis DATE OF EXAM: 06/23/2021 COMPARISON: 08/02/2016 HISTORY: 89 years Female. STUDY INDICATION GIVEN: fall, hip pain . TECHNIQUE: AP pelvis, AP and lateral left hip radiographs IMPRESSION: Generalized osteopenia limits evaluation for nondisplaced fracture. No findings to suggest acute fracture or dislocation. Incidental degenerative changes are seen in the lower lumbar spine. 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 Distal aortic and common iliac vascular calcification seen. Moderate to large stool burden.
[2021-06-23] MEDS ORDERED: SODIUM CHLORIDE 0.9% 1,000 ML IV STA (17:57)
== END 2021-06-23 19:19 | disposition home or self-care (01) ==
LOC: EC 13:51
DX: M25.552 Pain in left hip (principal); I10 Essential (primary) hypertension; E11.9 Type 2 diabetes mellitus without complications; E07.9 Disorder of thyroid, unspecified; Z79.890 Hormone replacement therapy; Z88.2 Allergy status to sulfonamides; Z88.0 Allergy status to penicillin; W19.XXXA Unspecified fall, initial encounter
CPT/HCPCS: 73502; 73562; 72125; 70450; 99284; L1830